=== PATIENT | male | born 1935 | race Caucasian/White ===

== ENCOUNTER 2023-05-25 14:03 | Emergency (ER) | payer MEDICARE, SELFPAY ==
[2023-05-25 14:06] VITALS: BP 107/59
--- NOTE | 2023-05-25 16:07 | ED.GENMED ---
History of Present Illness
General
Chief Complaint: Bowel Problem
Source: patient
Exam Limitations: none
Time Seen by Provider: 05/25/23 15:11
Travel History
Have you had any contact with someone who has COVID-19?: No
Do you have any symptoms of coronavirus? Fever > 100 degrees, chills, cough, shortness of breath, sore throat, loss of taste or smell, muscle aches, or headache?: No
History of Present Illness
History of Present Illness:
87-year-old male visiting his daughter presents with constipation and no bowel movement for 4 days. He typically does not deal with this issue. He denies abdominal pain nausea vomiting. He tried senna, he tried magnesium citrate without relief.
He states he has the urge to have a bowel movement but nothing comes out. No abdominal pain. No fever. He is on Eliquis for history of atrial fibrillation. He denies any bloody stools or vomit. No other complaints at this time
Phy Exam
Physical Exam
Physical Exam:
General: Well-appearing male no acute respiratory distress
HEENT: Normocephalic atraumatic
Heart: Regular rate and rhythm no murmur
Lungs: Clear to auscultation bilaterally no wheezing
Abdomen is soft nontender nondistended no guarding rebound normal bowel sound
Rectal exam: There is rectal impaction of stool. A large amount of stool was manually disimpacted. The stool was dark in color this was tested for blood which was negative.
Extremities: No cyanosis
Course
Orders/Labs/Results
Orders:
Orders
05/25/23 15:29
Enema- Treatment ONCE
Type: Milk of Molasses
Vital Signs
Initial and Last Documented VS:
Initial Vital Signs
Temp Pulse Resp BP Pulse Ox
97.6 F 66 18 107/59 98
05/25/23 14:06 05/25/23 14:06 05/25/23 14:06 05/25/23 14:06 05/25/23 14:06
Last Documented Vital Signs
Temp Pulse Resp BP Pulse Ox
97.6 F 66 18 107/59 98
05/25/23 14:06 05/25/23 14:06 05/25/23 14:06 05/25/23 14:06 05/25/23 14:06
MDM/Problems Addressed
Differential Diagnosis Includes:
Constipation. Abdomen benign nontender do not suspect bowel obstruction. No fever. Large amount of stool was manually disimpacted. Enema ordered.
*Critical Care Note
Total Time (30-74mins, 75-104mins- exclusive of procedures): Not Applicable
Update Note
Update Note:
Patient feeling much better after large amount of stool was manually disimpacted and receiving an enema. Abdomen is benign. Recommended continued stool softeners at home. Stable for discharge
ED Attending Note
-
Portions of this chart may have been created with voice recognition software.� Occasional wrong word or��sound alike� substitutions may have occurred due to the inherent limitations of voice recognition software.
Discharge Plan
Departure
Patient Disposition: Home (Routine Discharge)
Date of Disposition: 05/25/23
Time of Disposition: 16:53
Patient with high blood pressure during this ER visit?: No
Discharge Problem:
Constipation
Instructions: Constipation, Adult (DC)
Activity Restrictions/Additional Instructions:
Continue drinking plenty liquids. Use stool softeners daily. Return for worsening symptoms otherwise follow-up with your family doctor
Interventions
Interventions:
*Risk Screen - Suicide Last Done: 05/25/23 14:06
*General Assessment Last Done: 05/25/23 14:06
*Neglect/Abuse Screening Last Done: 05/25/23 14:06
*ED COVID-19 Vaccine History Last Done: 05/25/23 14:06
YZ-Gdfmep-Orcksqxofz Assessment Last Done: 05/25/23 15:33
[2023-05-25 17:16] VITALS: BP 112/67
== END 2023-05-25 17:24 | disposition home or self-care (01) ==
LOC: EMR 14:03
PROVIDERS: EMERGENCY PHYSICIAN Emergency Medicine
DX: K59.00 Constipation, unspecified (principal)
CPT/HCPCS: 99282

== ENCOUNTER 2023-05-31 23:57 | Inpatient (IN) | payer MEDICARE, SELFPAY ==
[2023-05-31] VITALS (7 sets, daily range): BP systolic 102–136; BP diastolic 57–72; BMI 25.2
[2023-05-31 15:26] LABS: % Basophils 0.2 % (0-2); % Eosinophils 0.3 % (0-6); % Immature Granulocytes 0.4 % (0-0.5); % Lymphocytes 4.9 % (20.5-51.1); % Monocytes 6.9 % (1.7-9.3); % Neutrophils 87.3 % (42.2-75.2); Absolute Immature Granulocytes 0.1 10^3/uL (0-0.05); Absolute Lymphocytes 0.6 10^3/uL (1.2-3.4); Absolute Monocytes 0.8 10^3/uL (0.1-0.6); Absolute Neutrophils 10.4 10^3/uL (1.4-6.5); Hematocrit 28.3 % (39.0-52.0); Hemoglobin 9.4 g/dL (13.0-18.0); Mean Corp Hgb Conc. 33.2 g/dL (33.0-37.0); Mean Corpuscular Hgb 30.5 pg (27.0-31.0); Mean Corpuscular Volume 91.9 fL (80.0-94.0); Mean Platelet Volume 9.7 fL (7.4-10.4); Nucleated Red Blood Cells % 0 % (-); Platelet Count 151 10^3/uL (130-400); Red Blood Cell Count 3.08 10^6/uL (4.70-6.10); Red Cell Dist. Width 15.8 % (11.5-14.5); White Blood Cell Count 11.9 10^3/uL (4.8-10.8)
[2023-05-31 15:42] LABS: ALT (SGPT) 14 U/L (0-50); AST (SGOT) 17 U/L (17-59); Albumin 3.1 g/dl (3.5-5.0); Alkaline Phosphatase 74 U/L (38-126); Blood Urea Nitrogen 40 mg/dl (9-20); Calcium 8.5 mg/dl (8.4-10.2); Carbon Dioxide 21 mmol/L (22-30); Chloride 105 mmol/L (98-107); Glucose 100 mg/dl (70-99); Lipase 24 U/L (23-300); Potassium 4.2 mmol/L (3.5-5.1); Sodium 133 mmol/L (135-145); Total Protein 5.6 g/dl (6.3-8.2); eGFR > 60.00
--- NOTE | 2023-05-31 19:09 | ED.GENMED ---
History of Present Illness
General
Chief Complaint: Bowel Problem
Source: patient
Exam Limitations: none
Time Seen by Provider: 05/31/23 18:39
Nursing documentation reviewed up to this point in time: agreed with
Travel History
Have you had any contact with someone who has COVID-19?: No
Do you have any symptoms of coronavirus? Fever > 100 degrees, chills, cough, shortness of breath, sore throat, loss of taste or smell, muscle aches, or headache?: No
History of Present Illness
History of Present Illness:
87 y/o M afib on eliquis, chf on prn lasix, htn, hld, urinary retention self caths
TAVR
partial gastrectomy from perf ulcer years ago
here with constipation
was here on 05/24 for the same
is in town from [place] visiting his daughter
has had ongoin constipation issues and takes iron. is pretty sedentary
when here he was disimpacted and then had large BM after enema and felt better
did not have imaging
went home an daughter has been trying to encourage fluids, movement, senna tea, colace
but pt stopped having BM again ,alst was 5 day ago but now he is nauseated and doesn't want to eat today
had limited food yesterday and nthing today
has not had black stool
no h/o divertic
is not having much abd pain but does feel rectal pressure.
Past History
Past History
ED Past Medical History: Arrthythmia (afib on eliquis), CAD, Cancer (kidney), CHF, GERD, HTN, Hypercholesterolemia and Other (PUD)
ED Past Surgical History: Cardiac and Other (partial gastrectomy, kidney tumor ); Negative Bowel resection
Social History
Tobacco: Non-smoker
Alcohol: None
Drug: None
Personal: Single
Living: with family
Review of Systems
Review of Systems
Allergies reviewed?: Yes
All Other Systems: Not applicable
Phy Exam
Physical Exam
Physical Exam:
GENERAL: Alert , in no apparent distress
EYE: pupils equal and reactive
NECK: Supple
ENT: o/p clr, mmm.
CARDIAC: Regular rate and rhythm .
LUNGS: Clear breath sounds bilaterally, no acute respiratory distress, no wheezes/rales/rhonchi
ABDOMEN: Soft, large inguinal hernia, no skin changes but slightly firm, can partially reduce; otherwise abdomen nontender;
fecal impaction
brown stool mixed with small amount of blood when disimpacted, heme pos.
NEUROLOGICAL: Alert and oriented, no focal neuro deficits
SKIN: Warm and dry, skin intact.
MUSCULOSKELETAL: No edema, well perfused. neg jay's sign
PSYCH: Normal and appropriate interaction.
Course
Orders/Labs/Results
Orders:
Orders
05/31/23 15:18
Complete Blood Count/With Diff Urgent
Comprehensive Metabolic Panel Urgent
Ferritin Urgent
Comment: ADD ON
Folate Urgent
Comment: ADD ON
Iron Urgent
Comment: ADD ON
Lipase Urgent
Total Iron Binding Urgent
Comment: ADD ON
Vitamin B12 Urgent
Comment: ADD ON
05/31/23 19:07
0.9% Sodium Chloride 500 ml [Nss] 500 ml IV BOLUS
Pantoprazole [Protonix IV] 40 mg IV NOW STA
05/31/23 19:37
CT Abd/Pel (IV only)-DH only Urgent
Comment:
Reason For Exam: constipation, nausea, lack of appetite
05/31/23 19:55
Vital Signs- Treatment ONCE
Frequency: Once
05/31/23 21:23
Urinalysis Reflex To Culture Urgent
Date Specimen was Collected: 05/31/23
Time Specimen was Collected: 20:12
Urine Microscopic Reflex Cult Urgent
Urine Culture Urgent
CHINO Source: U
Specimen Description:
Date Specimen was Collected: 05/31/23
Time Specimen was Collected: 20:12
05/31/23 22:25
Acetaminophen [Tylenol] 1,000 mg .ROUTE .STK-MED ONE
05/31/23 22:29
Ampicillin/Sulbactam 3 G [Unasyn] 3 gm 0.9% Sodium Chloride 100 ml [Nss] 100 ml IV NOW
05/31/23 22:45
Acetaminophen [Tylenol] 1,000 mg PO NOW STA
05/31/23 23:27
Add On- LAB Urgent
Tests Added?: iron ferritin, tibc, folate b12
05/31/23 23:28
SURGICAL CONSULT Routine
Consulting Provider: Josh Munoz
Was physician already notified: Yes
Reason for consult: lg left inguinal hernia containing bowel
05/31/23 23:35
Consult Notification Routine
Specialty to Notify: Gastroenterology
GASTROINTESTINAL CONSULT Routine
Consulting Provider: William Lyn
Was physician already notified: No
Reason for consult: consitipation poss colitis, ing hernia with bowel
05/31/23 23:36
Admit/Transfer Patient As Directed
Co-Sign Provider:
Level of Care: Inpatient admission
Assign to:: Medical/Surgical
Physician / Group: arsalan austin
Diagnosis: lg left inguinal hernia containg bowel, poss uti, constipation, anemia
Reason for Hospitalization: lg left inguinal hernia containg bowel, poss uti, constipation, anemia
Expected length of stay greater than two midnights?: Yes
ELOS- Estimated Length of Stay in days: 4
I certify the patient meets the requirements for IP care: Yes
Code Status As Directed
Resuscitation Status: Do not resuscitate
Reached after discussion with pt or family/Healthcare POA: Yes
Based on pt advanced directive or healthcare POA form: Yes
Decision communicated with: per pt
05/31/23 23:37
DNR Bracelet Application ONCE
06/01/23 00:20
0.9% Sodium Chloride 1000 ml [Nss] 1,000 ml IV 60 mls/hr
Acetaminophen [Tylenol] 1,000 mg PO Q6HPRN PRN
Albuterol [ProAIR HFA INHALER] 2 puff INH R QID PRN
06/01/23 00:20
VTE Contraindication Routine
VTE Mechanical Device Contraindication: Medical Contraindication
Pharmocologic Contraindication: Medical Contraindication
Comment: pt on eliquis
Activity As Directed
Activity Level: As Tolerated
Intake/ Output As Directed
Frequency: Per unit guidelines
Straight Cath As Directed
Frequency: q6h
Patient may straight cath themselves: Yes
Vital Signs As Directed
Frequency: Per unit guidelines
Weight As Directed
Frequency: Daily
Ot Eval And Treat Routine
Pt Eval And Treat Routine
Activity Level: As Tolerated
06/01/23 06:00
Complete Blood Count/With Diff IN AM
Comprehensive Metabolic Panel IN AM
06/01/23 08:00
Budesonide/Formoterol 160/4.5 [Symbicort 160/4.5 Mcg Inhaler] 2 puff INH R BID
Digoxin [Lanoxin] 125 mcg PO [id number]@0800
Empagliflozin [Jardiance] 10 mg PO DAILY
Ferrous Sulfate [Feosol] 325 mg PO DAILY
Finasteride [Proscar] 5 mg PO DAILY
Metoprolol Xl [Toprol Xl] 12.5 mg PO DAILY
Sacubitril 24/Valsartan 26 [Entresto 24 mg/26 mg] 1 tab PO DAILY
06/01/23 Dinner
NPO
Allow oral meds: Yes
Allow clear liquids: No
NPO with Ice Chips: No
06/01/23 18:00
Atorvastatin [Lipitor] 20 mg PO QPM
Montelukast Sodium [Singulair] 10 mg PO QPM
06/02/23 06:00
Complete Blood Count/With Diff IN AM
Comprehensive Metabolic Panel IN AM
06/03/23 06:00
Complete Blood Count/With Diff IN AM
Comprehensive Metabolic Panel IN AM
Abnormal Lab Results
05/31/23 05/31/23
15:18 21:23
WBC 11.9 H 10^3/uL
(4.8-10.8)
RBC 3.08 L 10^6/uL
(4.70-6.10)
Hgb 9.4 L g/dL
(13.0-18.0)
Hct 28.3 L %
(39.0-52.0)
RDW 15.8 H %
(11.5-14.5)
Abs Immat Gran (auto) 0.1 H 10^3/uL
(0-0.05)
Absolute Neuts (auto) 10.4 H 10^3/uL
(1.4-6.5)
Absolute Lymphs (auto) 0.6 L 10^3/uL
(1.2-3.4)
Absolute Monos (auto) 0.8 H 10^3/uL
(0.1-0.6)
Neutrophils % 87.3 H %
(42.2-75.2)
Lymphocytes % 4.9 L %
(20.5-51.1)
Sodium 133 L mmol/L
(135-145)
Carbon Dioxide 21 L mmol/L
(22-30)
BUN 40 H mg/dl
(9-20)
Glucose 100 H mg/dl
(70-99)
Iron 44 L ug/dl
(49-181)
TIBC 255 L ug/dl
(261-462)
% Saturation 17 L %
(20-50)
Total Protein 5.6 L g/dl
(6.3-8.2)
Albumin 3.1 L g/dl
(3.5-5.0)
Urine Ketones Trace A
(Negative)
Ur Occult Blood Reflex 4+ A
(Negative)
Urine Bilirubin 1+ A
(Negative)
Leukocyte Esterase Rfl 2+ A
(Negative)
Urine RBC 21-25 A /HPF
(0-2)
Urine WBC (Reflex) 70-80 A /HPF
(0-5)
Urine Glucose 2+ A
(Negative)
05/31/23 15:18
05/31/23 15:18
Vital Signs
Initial and Last Documented VS:
Initial Vital Signs
Temp Pulse Resp BP Pulse Ox
99 F 80 18 102/57 96
05/31/23 15:08 05/31/23 15:08 05/31/23 15:08 05/31/23 15:08 05/31/23 15:08
Last Documented Vital Signs
Temp Pulse Resp BP Pulse Ox
99 F 81 20 136/64 98
05/31/23 15:08 05/31/23 23:00 05/31/23 23:00 05/31/23 23:00 05/31/23 23:00
MDM/Problems Addressed
Differential Diagnosis Includes:
fecal impaction, obstruction, ileus, UTI
MDM/Problems Addressed:
87 y/o M with ho urinary retention chronically, self caths, anemia on iron, afib on eliquis
here with contpiation x 5 days despite senna and colace an trying to drink fluids
was more nauseated and had lack of appetite today which is why daughter brought him
he feels the urge to go but hasn't been able to
is still pssing some gas occasionally
no focal pain or tendenress
nontoxic
no abofminal tendneress
fecal impaction on exam
brown stool but some demetrio blood mixed likely due to trauma
the stool is heme pos because of the bleeding but i not black
did have a bm after disimpaction but daughter still concerned and requested CT.
CT findings shw large bowel loop in the hernia with some distenion and inflammatory chagnes
d/w ed attending
could be ischemic colitis
recommned fluids, abx and admit
i did reach out to gen dianna munoz to make him aware.
*Critical Care Note
Total Time (30-74mins, 75-104mins- exclusive of procedures): Not Applicable
ED Attending Note
-
Portions of this chart may have been created with voice recognition software.� Occasional wrong word or��sound alike� substitutions may have occurred due to the inherent limitations of voice recognition software.
Discharge Plan
Departure
Patient Disposition: Admit
Date of Disposition: 05/31/23
Time of Disposition: 22:09
Admit to: Med/Surg
Presentation/result/management discussed w/ accepting MD/DO: Hospitalist
Discharge Problem:
Constipation, Colitis, Rectal bleed, Hernia
Interventions
Interventions:
*Risk Screen - Suicide Last Done: 05/31/23 21:24
*General Assessment Last Done: 05/31/23 21:24
*Neglect/Abuse Screening Last Done: 05/31/23 21:24
ED- Fall Risk Assessment Last Done: 05/31/23 21:24
*ED COVID-19 Vaccine History Last Done: 05/31/23 21:24
BQ-Dkjikq-Ulzysnames Assessment Last Done: 05/31/23 19:30
--- NOTE | 2023-05-31 19:29 | EDRN ---
Report received, patient in the bathroom having a bowl movement, states he had some relief
[2023-05-31] MEDS: PROTONIX IV 40 MG IV (19:32)
[2023-05-31] MEDS: NSS 500 IV (19:33)
[2023-05-31 21:27] LABS: Urine Albumin Trace (Neg - Trace); Urine Bilirubin 1+ (Negative); Urine Character Slightly Cloudy (Clear); Urine Color Yellow; Urine Glucose 2+ (Negative); Urine Ketone Trace (Negative); Urine Leukocyte 2+ (Negative); Urine Nitrite Negative (Negative); Urine Occult Blood 4+ (Negative); Urine Specific Gravity 1.015 (<1.030); Urine Urobilinogen Negative (Neg - 1+)
[2023-05-31 21:38] LABS: Urine Red Blood Cell 21-25 /HPF (0-2); Urine Squamous Cell 0-2 /LPF (Few)
[2023-05-31 21:39] LABS: Urine White Cell 70-80 /HPF (0-5)
[2023-05-31] MEDS: TYLENOL 1000 MG PO (22:46)
[2023-05-31] MEDS: UNASYN IV (22:46)
--- NOTE | 2023-05-31 23:03 | HPS.HSE ---
Family Physician
-
Family Physician: NOT KNOW UNKNOWN - PT DOES
Chief Complaint
-
Constipation x 7 days
History of Present Illness
87-year-old male who is visiting his daughter from [place] who states he has been constipated for the past 7 days. He denies abdominal pain reports slight nausea with decreased appetite due to constipation. He denies fever, chills, chest pain,
palpitations, shortness of breath, cough, abdominal pain, urinary symptoms. He reports a chronic left inguinal hernia that is hard in nature but is nontender on palpation he is unsure if the size is larger than it normally is. He has chronic
urinary retention and self caths 3-4 times a day, paroxysmal A-fib, CHF, HTN, HLD, TAVR, COPD, chronic urinary retention/self caths, renal cancer with removal, gastric ulcer with repair, iron deficiency, cognitive impairment�mild, chronic left
inguinal hernia
Medical History
Past Medical History
Past Medical History: Reports Other
Additional Past Medical History:
cognitive impairment�mild ?
chronic left inguinal hernia
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
chronic urinary retention and self caths 3-4 times a day
paroxysmal A-fib
CHF/? Cardiomyopathy
HTN
HLD
TAVR
COPD
Former smoker
chronic urinary retention/self caths
renal cancer with cryoablation at [facility] possibly 2022
gastric ulcer with repair
iron deficiency
Past Surgical History: Reports Other
Additional Past Surgical History:
Cholecystectomy
Gastric ulcer with repair
TAVR
Renal cancer had cryoablation thinks right kidney at [facility] patient is unsure if last year or this year
Social History
Tobacco: Former Smoker (Quit 50 years ago)
Alcohol: None
Drug: None
Personal:
Living: Alone (In [facility] but currently visiting his daughter)
Employment: Retired
Family History
Family History: Unable to Obtain
Allergies / Home Medications
Allergies reflects when Allergies were last updated in [facility].
Home Medications with original date entered in [facility]
Allergy/Medication List:
Allergies
Allergy/AdvReac Type Severity Reaction Status Date / Time
No Known Allergies Allergy Unverified 05/25/23 15:40
Home Medications
acetaminophen 650 mg tablet,extended release 1,300 mg PO Q8H PRN mild pain 05/31/23
albuterol sulfate 90 mcg/actuation aerosol inhaler 2 puff inhalation R QID PRN sob/wheezing 05/31/23
apixaban 5 mg tablet (Eliquis) 5 mg PO BID 05/31/23
atorvastatin 20 mg tablet 20 mg PO QPM 05/31/23
budesonide 160 mcg-glycopyr 9 mcg-formot 4.8 mcg/actuation HFA inhaler (Breztri Aerosphere) 2 inh inhalation R BID 05/31/23
digoxin 125 mcg (0.125 mg) tablet 125 mcg PO MOTUWETHFR 05/31/23
empagliflozin 10 mg tablet (Jardiance) 10 mg PO DAILY 05/31/23
ferrous sulfate 250 mg (50 mg iron) tablet,extended release 250 mg PO DAILY 05/31/23
finasteride 5 mg tablet 5 mg PO DAILY 05/31/23
furosemide 40 mg tablet 20 mg PO DAILYPRN PRN per deputy sheriff chief 05/31/23
metoprolol succinate 25 mg tablet,extended release 24 hr 12.5 mg PO DAILY 05/31/23
montelukast 10 mg tablet 10 mg PO QPM 05/31/23
sacubitril 24 mg-valsartan 26 mg tablet (Entresto) 1 tab PO DAILY 05/31/23
sennosides 8.6 mg tablet (senna) 34.4 mg PO QPM 05/31/23
Review of Systems
-
History Source: Patient
A 12 point ROS was completed and negative except as noted: Yes
Constitutional: Denies Fever
EENT: Denies Tearing, Sore Throat or Runny Nose
Respiratory: Denies Cough or Trouble Breathing
Cardiac: Denies Chest Pain, Diaphoresis or Syncope
Abdomen/GI: Reports Nausea and Constipated (7 days); Denies Abdominal Pain, Vomiting, Diarrhea, Bloody Stools or Black Stools
: Reports Other (Chronic urinary retention patient self caths 3-4 times a day)
Musculoskeletal: Denies Joint Pain, Joint Swelling or Edema
Skin: Denies Itching or Rash
Neurological: Denies Dizzy, Headache or Weakness
Endocrine: Reports No Symptoms
Hematologic/Lymphatic: Reports No Symptoms
Psych: Reports Calm
Physical Exam
Vital Signs
Vital Signs
Temp Pulse Resp BP Pulse Ox
99 F 76 21 113/59 96
05/31/23 15:08 05/31/23 20:00 05/31/23 20:00 05/31/23 20:00 05/31/23 15:08
Physical Exam
General: Comfortable and Conversant; No Pain, Fever or Chills
HEENT: NormoCephalic, Anicteric, Moist mucous membranes, PERRLA and No Ptosis
Respiratory: Clear; No Wheezes, Rales or Rhonchi
Cardiac: S1/S2 and Irregular Rhythm (afib ); No Murmur, Rub, Gallop or Peripheral Edema
Breast: Deferred by me
GI: Soft, Non Tender, Non Distended, Normal Bowel Sounds and No Hepatosplenomegaly
Rectal: Deferred by Provider
Genito-urinary: Other (large left hard palpable hernia overlying entire left groin, lower suprapubic to mons pubis , nontender non mobile )
Musculoskeletal: No Clubbing, No Cyanosis and No Edema
Skin: Warm and Dry; No Rash
Neuro: Awake, Alert, Oriented (To name, place, place of living but not past medical history years or events), Nonfocal/grossly intact and No Sensory Deficits; No Slurred Speech, Facial Droop or Tremors
Psych: Calm
Laboratory Results
-
05/31/23 15:18
05/31/23 15:18
Laboratory Results
Total Bilirubin 1.0 mg/dl (0.2-1.3) 05/31/23 15:18
AST 17 U/L (17-59) 05/31/23 15:18
ALT 14 U/L (0-50) 05/31/23 15:18
Alkaline Phosphatase 74 U/L (38-126) 05/31/23 15:18
Lipase 24 U/L (23-300) 05/31/23 15:18
Impression/Plan
-
Impression/plan:
Admit to [facility]
#Left inguinal hernia with contained bowel/Chronic left inguinal hernia
WBC 11.9, HR 76, 99 F, 113/59
-Consult surgery
-Hold Eliquis last dose this am 05/31/23
- NPO
-Iv Nss 60 hr x 1 liter
-Patient given IV Zosyn in ER we will hold further dose pending urine culture/ do not suspect colitis as indicated on Ct, pt with no abdominal pain
-Follow CBC, CMP
CT abdomen pelvis:
1. large indirect left inguinal hernia, containing a large loop of sigmoid colon.
2. Mild to moderate gaseous distention of the colon proximal to the hernia sac. There is also suggestion of mild to moderate wall thickening and enhancement
of the colon proximal to the hernia sac. This finding would suggest colitis, which could be ischemic colitis given the large hernia and the gaseous distention.
Infectious colitis would be a differential consideration.
No gross evidence for pneumatosis. No evidence of free intraperitoneal air.
Two cystic foci within the tail the pancreas
#Acute constipation
-Patient disimpacted in ER with large bowel movement
-Consult GI
#Chronic urinary incontinence�self caths
Urine likely contaminant
-Follow urine culture
-Continue finasteride 5 mg daily
--Patient given IV Zosyn in ER we will hold further dose pending urine culture/ do not suspect colitis as indicated on Ct, pt with no abdominal pain
#Cognitive impairment�mild/undiagnosed
Oriented to name, place unsure of past medical history and dates relies on daughter's
#Normocytic anemia
Hx iron deficiency
Hgb 9.4, MCV 91.9 no prior lab
-Check iron panel, B12, folate
-Continue ferrous sulfate to 50 mg daily
#A-fib paroxysmal
-Continue digoxin 125 mcg Wednesday
-Continue metoprolol succinate 12.5 mg daily
#Chronic CHF unclear type/? Cardiomyopathy
Patient believes he sees a deputy sheriff chief at [facility] [place] in [place]
-Continue Entresto daily, Jardiance
#TAVR
#HTN�benign
Continue metoprolol succinate 12.5 mg daily
#HLD
-Continue atorvastatin 20 mg every afternoon
#COPD�no acute exacerbation
#Former smoker states quit 50 years ago
#Renal cancer with patient believes cryoablation at [facility] unsure if 2022 or 2023
#Hx gastric ulcer with repair
#Chronic ambulatory dysfunction uses rollator at baseline
Consult PT/OT
DVT prophylaxis
Hold current Eliquis until surgical eval
DNR per patient
--- NOTE | 2023-05-31 23:34 | W.PN.UPDATE ---
Update Note
Progress Note Update
This note serves as an addendum to the H&P by head animal keeper Ivon Daly on 06/01/23
HPI
87 pretty much sedentary M visiting [place] t daughter , suspected cognitive disorder, Prx AF on Eliquis, partial gastectomy for perforated , on Fe supplement , known Lt ngulanal hernia whowas seen at ER on 05/24 for HX ongoing constipation and
disimpated . Cuurently no BM for 1 week. Associated nauseated but no vomiting. No fever . Nochills.
No abdominal pain and non tender abdomen. NO black stool
PMHx
Prx AF on Eliquis
CAD
Cancer (kidney)
CHF
GERD
HTN
Hypercholesterolemia
PUD
PSHx
Partial gastrectomy
Kdney tumor
Negative Bowel resection
SHx
Non-smoker
Alcohol: None
Drug: None
lives with daughter
Reviewed VS T 99 HR 70s BP 102/57- 113/60
PE
Gen: NAD, not toxic
HEENT: anicteric, no pallor,nl OM
Neck: supple
Lungs: CTA
Cor: RRR S1 S2
Abdomen: Soft, non tenderness, large Lt firm non tender inguinl hernia
SECURITY SYSTEMS SPECIALIST: NFND
MS: no edema
Psych: appropriate
Data
WCC 11.9
Hgb 9.4
Na 133
CO2 21
BUN 40
nl Cr nl eGFR
Abn UA with significant pyuria
CT AP:
- large indirect left inguinal hernia, containing a large loop of sigmoid colon.
- Mild to moderate gaseous distention of the colon proximal to the hernia sac.
- There is also suggestion of mild to moderate wall thickening and enhancement of the colon proximal to the hernia sac.
- This finding would suggest colitis, which could be ischemic colitis given the large hernia and the gaseous distention. - - Infectious colitis would be a differential consideration.
- No gross evidence for pneumatosis. No evidence of free intraperitoneal air.
- Two cystic foci within the tail the pancreas. 87-year-old patient, no further imaging follow-up is recommended.
No prior admission to
ASSESSMENT & PLAN
Irreducible chr Lt non tender inguinal hernia
Constipation
- NPO and IVF
- Held Eliquis
- GS consult
CT suggestive of Colitis - ischemic , infective
- No gross evidence for pneumatosis. No evidence of free intraperitoneal air.
- onne dose of Zosyn at ER - will hold till further eval by GI
- GI consult
Abn UA with significant pyuria
Self cath for chr UR
- await UCx
- Held further ABx for now
Known conditions
Prx AF ; Held Eliquis
CAD
Cancer (kidney)
CHF
GERD
HTN
Hypercholesterolemia
PUD
DVT Px: SCD
Code: Full code
IP MS
[2023-06-01 00:24] LABS: Iron 44 ug/dl (49-181)
[2023-06-01] MEDS: NSS 1000 IV (00:24)
[2023-06-01 00:34] LABS: Percent Saturation 17 % (20-50); Total Iron Binding Capacity 255 ug/dl (261-462)
[2023-06-01 03:17] VITALS: BMI 25.2
[2023-06-01 05:27] LABS: Folate 8.9 ng/ml (2.76-20); Vitamin B12 420 pg/ml (239-931)
[2023-06-01 06:49] LABS: % Basophils 0.1 % (0-2); % Eosinophils 0.8 % (0-6); % Immature Granulocytes 0.3 % (0-0.5); % Monocytes 6.7 % (1.7-9.3); % Neutrophils 85.1 % (42.2-75.2); Absolute Eosinophils 0.1 10^3/uL (0-0.7); Absolute Lymphocytes 0.7 10^3/uL (1.2-3.4); Absolute Monocytes 0.6 10^3/uL (0.1-0.6); Absolute Neutrophils 7.9 10^3/uL (1.4-6.5); Hematocrit 28.5 % (39.0-52.0); Hemoglobin 9.4 g/dL (13.0-18.0); Mean Corpuscular Hgb 30.7 pg (27.0-31.0); Mean Corpuscular Volume 93.1 fL (80.0-94.0); Mean Platelet Volume 9.9 fL (7.4-10.4); Nucleated Red Blood Cells % 0 % (-); Platelet Count 133 10^3/uL (130-400); Red Blood Cell Count 3.06 10^6/uL (4.70-6.10); Red Cell Dist. Width 15.9 % (11.5-14.5); White Blood Cell Count 9.2 10^3/uL (4.8-10.8)
[2023-06-01 07:04] LABS: ALT (SGPT) 12 U/L (0-50); AST (SGOT) 15 U/L (17-59); Albumin 2.8 g/dl (3.5-5.0); Alkaline Phosphatase 66 U/L (38-126); Blood Urea Nitrogen 38 mg/dl (9-20); Calcium 8.2 mg/dl (8.4-10.2); Carbon Dioxide 19 mmol/L (22-30); Chloride 108 mmol/L (98-107); Estimated Creatinine Clearance 50 ml/min; Glucose 70 mg/dl (70-99); Potassium 3.9 mmol/L (3.5-5.1); Sodium 135 mmol/L (135-145); Total Bilirubin 0.8 mg/dl (0.2-1.3); Total Protein 5.2 g/dl (6.3-8.2); eGFR > 60.00
--- NOTE | 2023-06-01 07:40 | W.PN.HOSP.TC ---
Addendum entered and electronically signed by Catie Young MD 06/01/23 15:00:
mild to moderate , but acceptable risk for Hernia repair under LMA
Original Note:
Today's Communication/Plan
-
Enema
Surgery eval
Assessment / Plan
Assessment / Plan
87 y/o male with Constipation. He had a very complicated cholecystectomy in April 2022 therefore could not inguinal hernia repair done so far.
CVS: S1-S2 normal
Chest: CTA B/L
Abdomen: Soft, Large LIH with trapped Bowel
Extremities: No edema, normal pulses
# Irreducible chr Lt non tender inguinal hernia
Constipation likely lead to this
Discussed with Dr.Lambour- NAILS for MOM enema
NPO and IVF
Hold Eliquis for now
GS consult and GI consult awaited.
# UTI per labs- Start AB
chronic urinary retention/self caths
Await Cx
# CHF-type unknown
Last echo WAS 50% EF per daughter
Seen at [facility] in [place]
Continue atorvastatin, metoprolol, Entresto
Hold Jardiance as n.p.o.
Hold Lasix as n.p.o.
Hold Eliquis as above
# Afib- Hold Eliquis
Continue metoprolol, Dig

# Anemia of chronic disease
GI eval as OP Discussed with daughter
# HTN-continue metoprolol, Entresto
# Hyperlipidemia-atorvastatin
# H/O PUD with surgery/GERD-Had 'Nerve Removal'
So don't need PPI per daughter
# H/O Renal cancer Right side with cryoablation at [facility] possibly 2022
H/O RCC Left kidney in 2011 had partial Nephrectomy Left side
# H/O TAVR
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
MRI Pancreas as OP
Discussed with daughter
# Complicated Cholecystectomy in april of 2022
# Cognitive impairment
# Chronic ambulatory dysfunction uses walker
# Hypoalbuminemia
# Likely has COPD? -on respiratory, albuterol inhaler
# Prostate disease-continue finasteride
# Ex Smoker
# DNR status
Discussed with nursing
Discussed with Dr. Costa
Discussed with GI who is awaiting surgical consultation
D/W Daughter and updated.
Anticipated Discharge: 24 - 48 hours
Subjective/Interval History
-
Date of Service: June 01, 2023
Objective Data
-
Labs:
Laboratory Results
06/01/23
05:58
WBC 9.2
Hgb 9.4 L
Hct 28.5 L
Plt Count 133
Sodium 135
Potassium 3.9
Chloride 108 H
Carbon Dioxide 19 L
BUN 38 H
Creatinine 1.0
Glucose 70
Calcium 8.2 L
Total Bilirubin 0.8
AST 15 L
ALT 12
Alkaline Phosphatase 66
Vital Signs:
Vital Signs
Temp Pulse Resp BP Pulse Ox
98.1 F 73 17 136/64 96
06/01/23 04:29 06/01/23 03:45 06/01/23 03:45 05/31/23 23:00 06/01/23 03:42
I&O
05/31/23 06/01/23 06/02/23
06:59 06:59 06:59
Intake Total 580 / 580
Output Total 500 / 500
Balance 80 / 80
[2023-06-01] MEDS: SYMBICORT 160/4.5 MCG INHALER 2 PUFF INH ×2 (08:08→19:50)
[2023-06-01] MEDS: SPIRIVA RESPIMAT 2.5 MCG 2 PUFF INH (08:08)
[2023-06-01 08:28] LABS: Iron 45 ug/dl (49-181)
[2023-06-01 08:29] VITALS: BP 133/55
[2023-06-01] MEDS: JARDIANCE PO (08:33)
[2023-06-01 08:37] LABS: Percent Saturation 19 % (20-50); Total Iron Binding Capacity 235 ug/dl (261-462)
[2023-06-01 08:40] LABS: Glucose - Point of Care 71 mg/dl (70-99)
[2023-06-01] MEDS: ENTRESTO 24 MG/26 MG 1 TAB PO (09:11)
[2023-06-01] MEDS: TOPROL XL 12.5 MG PO (09:11)
[2023-06-01] MEDS: FEOSOL 325 MG PO (09:11)
[2023-06-01] MEDS: PROSCAR 5 MG PO (09:11)
[2023-06-01] MEDS: LANOXIN 125 MCG PO (09:22)
[2023-06-01] MEDS: NSS (PRESERVATIVE FREE) 10 ML IV (10:20)
[2023-06-01] MEDS: ROCEPHIN 1000 MG IV (10:20)
[2023-06-01] MEDS: PROTONIX IV 40 MG IV (10:20)
[2023-06-01] MEDS: STERILE WATER FOR INJECTION 10 ML IV (10:21)
--- NOTE | 2023-06-01 10:27 | CON.GS ---
Addendum entered and electronically signed by Kory Costa MD 06/01/23 12:03:
Patient is an 87 yo M with a PMH of HTN, HLD, s/p TAVR, A-fib (on Eliquis, LD 05/30 PM), CHF, COPD (no home O2), RIGHT RCC s/p cryoablation approximately 12 years ago, s/p laparoscopic cholecystectomy, s/p exploratory laparotomy for a gastric ulcer
years ago, and undescended testicle as a child s/p orchiectomy. Mr. Sykes states that he has had a known large LEFT inguinal hernia for years now. He was previously evaluated by a surgeon at the time of his cholecystectomy in 2022 and was
instructed to follow a watchful waiting approach. He has had no significant pain or discomfort associated with his hernia. He does note mild twinges of discomfort infrequently. No nausea or vomiting. He does note issues with constipation and
takes senna on an as-needed basis. His most recent bowel movement and flatus was here in the ED. He has had multiple loose nonbloody bowel movements. No fevers or chills. No abdominal pain or discomfort. He currently resides in [place] and is
visiting his daughter who has brought him to the ER on multiple occasions.
Gen: NAD
Abd: soft, NT/ND, non-peritoneal, midline incision well healed, large LEFT inguinoscrotal hernia, soft, NT, partially reducible, no significant pain with reduction
Labs and imaging were reviewed.
Patient is an 87 yo M p/w large LEFT indirect inguinal scrotal hernia containing large bowel. No clinical evidence of obstruction, unlikely to have strangulation or ischemia given radiographic findings, normalization of white count, and exam.
The natural history and pathophysiology of inguinal hernias was discussed. Options for management including continued watchful waiting and medical management approach versus surgical repair were considered and discussed. The pros and cons of both
approaches was discussed. Specifically, we discussed persistent symptoms of constipation, development of complete obstruction or strangulation symptoms, and increased size with time versus surgical risks. Given the size and symptomatic nature,
recommend operative repair. As described above, low risk for strangulation or ischemia. Repair can be performed on a semielective basis. Due to logistical issues with living in [place] and cardiac risk profiling/optimization, will plan for
repair during this hospitalization.
Plan for an open LEFT inguinal scrotal hernia repair with mesh. The procedure itself, as well as the risks, benefits, and alternatives was discussed. Specifically, we discussed the risks of bleeding, infection, injury to surrounding structures
(bowel, nerves, blood supply to the testicle, and vas deferens), chronic groin discomfort, urinary retention, and recurrence. Typical postprocedure recovery including pain management, time spent in the hospital, potential need for discharge to
rehab, and the need for 4 weeks after lifting was discussed. All questions answered. Daughters updated by phone.
-- Tentative plan for open LIH repair with mesh tomorrow 4/ after Eliquis washout
-- Clears, NPO PM
-- Hold Eliquis
-- Miralax daily, OK for enema if needed
-- Cardiology consult for risk stratification, would attempt MAC though likely general with LMA given size of hernia
--
Original Note:
Medical History
-
Chief Complaint: Constipation
History of Present Illness:
87 yr old male with history of chronic left inguinal hernia, cholecystectomy, renal cancer s/p cryoablation, remote hx of gastric ulcer with open repair, afib, CHF, TAVR, COPD, who presents with c/o constipation x7 days. He resides in [facility], and is
visiting his daughter. He denies abdominal pain, nausea/vomiting, fever, chills, chest pain, SOB, palpitations. He has had 3 bowel movements today while in the hospital. He has one undescended testicle, pt is unsure of what side. There has been no
recent illness or sick contacts.
Of note, he was seen at ED 7 days ago for constipation x4 days, with a large bowel movement following manual disimpaction and enema.
Past Medical History
Past Medical History: Cancer (renal), CHF, COPD, Valvular Disease and Other (A-fib, chronic urinary retention, ambulatory dysfunction)
Past Surgical History: Cardiac, Cholecystectomy and Other (gastric ulcer repair, )
Social History
Tobacco: Former Smoker
Alcohol: None
Drug: None
Personal:
Living: Alone
Employment: Retired
Family History
Family History: Reviewed & Noncontributory
Allergies / Home Medications
Allergy/AdvReac Type Severity Reaction Status Date / Time
No Known Allergies Allergy Unverified 05/25/23 15:40
�Medication �Instructions �Recorded �Confirmed �Type
acetaminophen 650 mg 1,300 mg PO Q8H PRN mild pain 05/31/23 05/31/23 History
tablet,extended release
albuterol sulfate 90 mcg/actuation 2 puff inhalation R QID PRN 05/31/23 05/31/23 History
aerosol inhaler sob/wheezing
apixaban 5 mg tablet (Eliquis) 5 mg PO BID Blood Clot 05/31/23 05/31/23 History
Prevention/Tx
atorvastatin 20 mg tablet 20 mg PO QPM High Cholesterol 05/31/23 05/31/23 History
budesonide 160 mcg-glycopyr 9 2 inh inhalation R BID 05/31/23 05/31/23 History
mcg-formot 4.8 mcg/actuation HFA Lung/Breathing Issues
inhaler (Breztri Aerosphere)
digoxin 125 mcg (0.125 mg) tablet 125 mcg PO MOTUWETHFR Heart Failure 05/31/23 05/31/23 History
empagliflozin 10 mg tablet 10 mg PO DAILY Heart Failure 05/31/23 05/31/23 History
(Jardiance)
ferrous sulfate 250 mg (50 mg 250 mg PO DAILY Supplement 05/31/23 05/31/23 History
iron) tablet,extended release
finasteride 5 mg tablet 5 mg PO DAILY prostate issues 05/31/23 05/31/23 History
furosemide 40 mg tablet 20 mg PO DAILYPRN PRN per 05/31/23 05/31/23 History
cotton stomper
metoprolol succinate 25 mg 12.5 mg PO DAILY Heart Failure 05/31/23 05/31/23 History
tablet,extended release 24 hr
montelukast 10 mg tablet 10 mg PO QPM asthma 05/31/23 05/31/23 History
sacubitril 24 mg-valsartan 26 mg 1 tab PO DAILY Heart Failure 05/31/23 05/31/23 History
tablet (Entresto)
sennosides 8.6 mg tablet (senna) 34.4 mg PO QPM Constipation 05/31/23 05/31/23 History
Review of Systems
-
History Source: Patient and Family
Constitutional: Fever (negative), Fatigue (negative) and Chills (negative)
Respiratory: No Symptoms and Trouble Breathing (negative)
Cardiac: No Symptoms, Chest Pain (negative), Palpitations (negative) and Other (occasional dizziness)
Abdomen/GI: Abdominal Pain (negative), Nausea (negative), Vomiting (negative) and Constipated
: Difficulty Voiding
A 10 point review of systems was completed, and was negative except as per HPI.
Physical Exam
Vital Signs
Temp Pulse Resp BP Pulse Ox
98 F 93 16 133/55 95
06/01/23 08:29 06/01/23 09:22 06/01/23 08:29 06/01/23 08:29 06/01/23 08:30
05/31/23 06/01/23 06/02/23
06:59 06:59 06:59
Actual Weight 73.028 kg
Body Mass Index (BMI) 25.2
Lab Results
06/01/23 05:58
06/01/23 05:58
WBC 9.2 10^3/uL (4.8-10.8) 06/01/23 05:58
Hgb 9.4 g/dL (13.0-18.0) L 06/01/23 05:58
Hct 28.5 % (39.0-52.0) L 06/01/23 05:58
Plt Count 133 10^3/uL (130-400) 06/01/23 05:58
Abs Immat Gran (auto) 0.0 10^3/uL (0-0.05) 06/01/23 05:58
Neutrophils % 85.1 % (42.2-75.2) H 06/01/23 05:58
Physical Exam
General: Well Developed, Well Nourished and No Apparent Distress
HEENT: Normocephalic, Anicteric and Moist Mucous Membranes
Respiratory: Non Labored Respirations and Accessory Resp Muscle Use (negative)
GI: Soft, Non Tender, Non Distended, Tender and Other (Large left inguinal hernia, projecting into left scrotum, firm, non-erythematous, non-tender, not easily reducible)
Neuro: Awake, Alert and Oriented
Psych: Calm
Assessment / Plan
-
87 yr old male with recurrent constipation and large left irreducible inguinal hernia.
Plan:
- Left inguinal hernia was only partially reducible with significant effort.
- Admit patient for non-urgent open hernia repair
- Last Eliquis dose was last night. Hold Eliquis at least 48 hours pre-op
[2023-06-01 10:36] LABS: Digoxin 0.7 ng/ml (0.8-2.0)
[2023-06-01] MEDS: TYLENOL 1000 MG PO (10:50)
--- NOTE | 2023-06-01 10:57 | CON.GI ---
Addendum entered and electronically signed by William Lyn MD 06/01/23 17:11:
I saw and examined the patient.
The SAMPLER PICKUP or PA's note was reviewed and I agree with the note.
Comment: 87 yo M here with constipation found on CT to have large L inguinal loop with containing colon as below.
Surgery note reviewed plan OR tomorrow.
GI will sign off please call with ?s.
Original Note:
Consultation
-
Date/Time Consultation Requested: 05/31/23 2330
Date/Time Consultation Performed: 06/01/23 1100
Requesting Provider: STEPHANIA Moreno
Performing Provider: STEPHANIA Gutierrez, Indu Lyn MD
Reason for Consultation: abdominal pain
Medical History
Chief Complaint / HPI
Chief Complaint: constipation
History of Present Illness:
Pt is an 87yo with hx cognitive impairment, ambulatory dysfunction, PAF, CHF, DM, HTN, HLD, TAVR, COPD, chronic urinary retention, renal cancer with cryoablation at [facility], gastric ulcer with repair, iron deficiency is visiting from
[place] with family and noted with 7 days of constipation. Per patient will have stool 1-2 per day but last week no stools. He was seen in ER 05/24 with disimpaction and now returns with recurrent symptoms. On admission CT completed with large
left inguinal hernia containing loop of sigmoid colon and gaseous distention of colon with mild to moderate thickening of colon proximal to hernia suggesting colitis possible ischemic vs infectious.
Pt otherwise denies dysphagia, GERD, nausea, vomiting, abdominal pain, diarrhea or rectal bleeding. Last colonoscopy 6-7 years ago with polyps.
Past Medical History
Past Medical History: Arrhythmias (PAF), Cancer (renal CA with cryoablation at [facility]), CHF, Hypercholesterolemia, NIDDM and Other (cognitive impairment, ambulatory dysfunction, chronic urinary retention with straight cath, gastric ulcer,
iron deficiency, colon polyps)
Past Surgical History: Cardiac (TAVR) and Other (gastric ulcer repair)
Social History
Tobacco: Former Smoker
Alcohol: None
Drug: None
Personal:
Living: Alone (in [place] family close to patient other daughter in [place])
Employment: Retired
Family History
Family History: Other (no family hx colon CA or polyps)
Allergies / Home Medications
Allergy/AdvReac Type Severity Reaction Status Date / Time
No Known Allergies Allergy Unverified 05/25/23 15:40
�Medication �Instructions �Recorded
acetaminophen 650 mg 1,300 mg PO Q8H PRN mild pain 05/31/23
tablet,extended release
albuterol sulfate 90 mcg/actuation 2 puff inhalation R QID PRN 05/31/23
aerosol inhaler sob/wheezing
apixaban 5 mg tablet (Eliquis) 5 mg PO BID Blood Clot 05/31/23
Prevention/Tx
atorvastatin 20 mg tablet 20 mg PO QPM High Cholesterol 05/31/23
budesonide 160 mcg-glycopyr 9 2 inh inhalation R BID 05/31/23
mcg-formot 4.8 mcg/actuation HFA Lung/Breathing Issues
inhaler (Breztri Aerosphere)
digoxin 125 mcg (0.125 mg) tablet 125 mcg PO MOTUWETHFR Heart Failure 05/31/23
empagliflozin 10 mg tablet 10 mg PO DAILY Heart Failure 05/31/23
(Jardiance)
ferrous sulfate 250 mg (50 mg 250 mg PO DAILY Supplement 05/31/23
iron) tablet,extended release
finasteride 5 mg tablet 5 mg PO DAILY prostate issues 05/31/23
furosemide 40 mg tablet 20 mg PO DAILYPRN PRN per 05/31/23
bag turner
metoprolol succinate 25 mg 12.5 mg PO DAILY Heart Failure 05/31/23
tablet,extended release 24 hr
montelukast 10 mg tablet 10 mg PO QPM asthma 05/31/23
sacubitril 24 mg-valsartan 26 mg 1 tab PO DAILY Heart Failure 05/31/23
tablet (Entresto)
sennosides 8.6 mg tablet (senna) 34.4 mg PO QPM Constipation 05/31/23
Review of Systems
-
History Source: Patient and Family
Constitutional: Reports No Symptoms
EENT: Reports No Symptoms
Respiratory: Reports No Symptoms
Cardiac: Reports No Symptoms
Abdomen/GI: Reports Constipated
: Reports Other (chronic st cath no urinary symptoms )
Musculoskeletal: Reports No Symptoms
Skin: Reports No Symptoms
Neurological: Reports No Symptoms
Endocrine: Reports No Symptoms
Hematologic/Lymphatic: Reports No Symptoms
Vital Signs
Temp Pulse Resp BP Pulse Ox
98 F 93 16 133/55 95
06/01/23 08:29 06/01/23 09:22 06/01/23 08:29 06/01/23 08:29 06/01/23 08:30
Physical Exam
Exam
General: Well Developed and No Apparent Distress
HEENT: Normocephalic and Anicteric
Respiratory: Clear
Cardiac: Other (irregular )
GI: Soft, Non Tender, Non Distended and Other (large left inguinal hernia )
Musculoskeletal: No Clubbing and No Cyanosis
Skin: Warm and Dry
Neuro: Awake, Alert and AO x 3
Psych: Calm
Results
WBC 9.2 10^3/uL (4.8-10.8) 06/01/23 05:58
Hgb 9.4 g/dL (13.0-18.0) L 06/01/23 05:58
Hct 28.5 % (39.0-52.0) L 06/01/23 05:58
MCV 93.1 fL (80.0-94.0) 06/01/23 05:58
Plt Count 133 10^3/uL (130-400) 06/01/23 05:58
Absolute Neuts (auto) 7.9 10^3/uL (1.4-6.5) H 06/01/23 05:58
Sodium 135 mmol/L (135-145) 06/01/23 05:58
Potassium 3.9 mmol/L (3.5-5.1) 06/01/23 05:58
Chloride 108 mmol/L (98-107) H 06/01/23 05:58
Carbon Dioxide 19 mmol/L (22-30) L 06/01/23 05:58
BUN 38 mg/dl (9-20) H 06/01/23 05:58
Creatinine 1.0 mg/dL (0.7-1.3) 06/01/23 05:58
Calcium 8.2 mg/dl (8.4-10.2) L 06/01/23 05:58
Total Bilirubin 0.8 mg/dl (0.2-1.3) 06/01/23 05:58
AST 15 U/L (17-59) L 06/01/23 05:58
ALT 12 U/L (0-50) 06/01/23 05:58
Alkaline Phosphatase 66 U/L (38-126) 06/01/23 05:58
Lipase 24 U/L (23-300) 05/31/23 15:18
Diagnostic Image Results:
05/31/23 CT A/p IV only
There is a large indirect left inguinal hernia, containing a large loop of sigmoid colon.
Mild to moderate gaseous distention of the colon proximal to the hernia sac. There is also suggestion of mild to moderate wall thickening and enhancement of the colon proximal to the hernia sac. This finding would suggest colitis, which could be
ischemic colitis given the large hernia and the gaseous distention. Infectious colitis would be a differential consideration.
No gross evidence for pneumatosis. No evidence of free intraperitoneal air.
Two cystic foci within the tail the pancreas. 87-year-old patient, no further imaging follow-up is recommended.
Prior GI Procedures:
EGD: recalls as normal in past
Colonoscopy: 6-7 years with with hx polyps in [place]
Assessment / Plan
-
Pt is an 87yo with hx cognitive impairment, ambulatory dysfunction, PAF, CHF, DM, HTN, HLD, TAVR, COPD, chronic urinary retention, renal cancer with cryoablation at [facility], gastric ulcer with repair, iron deficiency is visiting from
[place] with family and noted with 7 days of constipation. Per patient will have stool 1-2 per day but last week no stools. He was seen in ER 05/24 with disimpaction and now returns with recurrent symptoms. On admission CT completed with large
left inguinal hernia containing loop of sigmoid colon and gaseous distention of colon with mild to moderate thickening of colon proximal to hernia suggesting colitis possible ischemic vs infectious. Last colonoscopy 6-7 years ago with polyps.
-constipation
-large left inguinal hernia
-CT with concern for colitis - ischemic vs other
-PAF on Eliquis
other medical problems:
-hx renal CA with prior cryoablation at [facility]
-gastric ulcer with prior repair
-MEME
-CHF
-DM
-HTN
-hyperlipidemia
-TAVR
-COPD
-chronic urinary retention
PLAN:
etiology of constipation related to obstructive process with hernia vs chronic constipation related vs other
per nursing staff and patient plan for surgical repair tomorrow
will review with surgery for plan and proceeding enema
wll need to monitor bowel and need for chronic constipation regiment
Eliquis hold
-
-
Thank you for consultation and allowing me to participate in the patient's care. Please call the infusion nurse GI physician during the after hours with any questions or concerns.
[2023-06-01 12:02] LABS: Glucose - Point of Care 80 mg/dl (70-99)
[2023-06-01 14:00] VITALS: BP 124/85; PULSE 76
--- NOTE | 2023-06-01 14:00 | PTCARENOTE ---
Pt AOx3, denies pain or nausea. Advanced to Clears, tolerating well. Straight cathed @ 1030 [address] Costa discussed POC w/ pt and pt's family over the phone. Plan for surgery tomorrow, NPO at midnight. Will hold enema, and give
Miralax per Dr Costa. Pt incontinent of small amount of loose brown stool in attends. PT/OT assisted pt OOB w/ RW, few steps in room. VSS. NS @ 60ml/hr. A fib on monitor HR 80-90's, tele removed, pt M/S, to transfer to 2S 2119.
[2023-06-01] MEDS: MIRALAX 17 GRAMS PO (14:28)
[2023-06-01 14:42] VITALS: BP 124/85; PULSE 85
[2023-06-01 14:52] VITALS: BP 125/69
--- NOTE | 2023-06-01 15:17 | PTCARENOTE ---
1425: Patient arrived to 2 south. Full head to toe assessment completed. IV fluids running per order. L groin with +2 edema. Hernia noted. Patient incontinent of liquid stool x2. Sacrum red and blanchable. Barrier ointment applied. Patient
instructed to turn and reposition every 2 hours. Patient verbalized understanding. Call sapp within reach and bed in lowest position. Bed alarm in place. Patients daughter at bedside.
[2023-06-01 15:37] LABS: Vitamin B12 536 pg/ml (239-931)
[2023-06-01 16:10] LABS: Troponin I 0.024 ng/ml
--- NOTE | 2023-06-01 17:11 | W.PN.UPDATE ---
Update Note
Progress Note Update
billing purposes only
[2023-06-01] MEDS: LIPITOR 20 MG PO (17:12)
[2023-06-01] MEDS: SINGULAIR 10 MG PO (17:12)
[2023-06-01 23:10] VITALS: BP 108/54
[2023-06-02 05:42] LABS: % Basophils 0.3 % (0-2); % Eosinophils 1.7 % (0-6); % Immature Granulocytes 0.3 % (0-0.5); % Lymphocytes 8.9 % (20.5-51.1); % Monocytes 6.9 % (1.7-9.3); % Neutrophils 81.9 % (42.2-75.2); Absolute Eosinophils 0.1 10^3/uL (0-0.7); Absolute Lymphocytes 0.6 10^3/uL (1.2-3.4); Absolute Monocytes 0.5 10^3/uL (0.1-0.6); Absolute Neutrophils 5.8 10^3/uL (1.4-6.5); Mean Corp Hgb Conc. 33.3 g/dL (33.0-37.0); Mean Corpuscular Hgb 30.7 pg (27.0-31.0); Mean Corpuscular Volume 92.2 fL (80.0-94.0); Mean Platelet Volume 9.9 fL (7.4-10.4); Nucleated Red Blood Cells % 0 % (-); Platelet Count 142 10^3/uL (130-400); Red Blood Cell Count 2.93 10^6/uL (4.70-6.10); Red Cell Dist. Width 15.8 % (11.5-14.5); White Blood Cell Count 7.1 10^3/uL (4.8-10.8)
[2023-06-02 06:00] VITALS: BMI 25.6
[2023-06-02 06:10] LABS: ALT (SGPT) 13 U/L (0-50); AST (SGOT) 16 U/L (17-59); Albumin 2.9 g/dl (3.5-5.0); Alkaline Phosphatase 69 U/L (38-126); Blood Urea Nitrogen 32 mg/dl (9-20); Calcium 8.5 mg/dl (8.4-10.2); Carbon Dioxide 21 mmol/L (22-30); Chloride 106 mmol/L (98-107); Estimated Creatinine Clearance 50 ml/min; Glucose 64 mg/dl (70-99); Potassium 4.1 mmol/L (3.5-5.1); Sodium 136 mmol/L (135-145); Total Bilirubin 0.7 mg/dl (0.2-1.3); Total Protein 5.3 g/dl (6.3-8.2); eGFR > 60.00
[2023-06-02 07:05] VITALS: BP 115/75
[2023-06-02] MEDS: MIRALAX PO (07:44)
[2023-06-02] MEDS: PROTONIX IV 40 MG IV (07:49)
[2023-06-02] MEDS: NSS (PRESERVATIVE FREE) 10 ML IV (07:49)
[2023-06-02] MEDS: PROSCAR 5 MG PO (07:49)
[2023-06-02] MEDS: FEOSOL 325 MG PO (07:49)
[2023-06-02] MEDS: LANOXIN 125 MCG PO (07:53)
[2023-06-02] MEDS: TOPROL XL 12.5 MG PO (07:54)
[2023-06-02] MEDS: ENTRESTO 24 MG/26 MG 1 TAB PO (07:54)
[2023-06-02] MEDS: SPIRIVA RESPIMAT 2.5 MCG 2 PUFF INH (08:14)
[2023-06-02] MEDS: SYMBICORT 160/4.5 MCG INHALER 2 PUFF INH ×2 (08:14→20:05)
--- NOTE | 2023-06-02 08:50 | W.PN.HOSP.TC ---
Today's Communication/Plan
-
OR today
Assessment / Plan
Assessment / Plan
Gen-AAOx3, NAD
HEENT-NC, AT, anicteric, clear oral mm
Neck-supple
CV-reg, no M, +S1/S2
Lungs-clear B/L
Abd-soft, NT, ND, large left inguinal hernia
Ext-no edema
Musculoskeletal-no cyanosis, clubbing
Skin-warm and dry
Neuro-grossly non-focal
Psych-calm, cooperative
Non-reducible chronic left inguinal hernia -n.p.o. for surgical repair this afternoon. Medically stable.
Chronic constipation -possibly exacerbated by hernia. Continue bowel regimen.
Asymptomatic pyuria -clinically doubt UTI. Hold further antibiotics. Self-catheterization at home, suspect he will always have pyuria. Patient also relates that he went to urgent care a month ago for evaluation of a cough. Apparently given
antibiotics for reported 'UTI' at that point in time although he again had no symptoms.
Chronic heart failure preserved EF -Last echo WAS 50% EF per daughter
Seen at [facility] in [place]
Continue atorvastatin, metoprolol, Entresto
Hold Jardiance as n.p.o.
Hold Lasix as n.p.o.
Atrial fibrillation -unknown type. Eliquis on hold for surgery today.
Continue metoprolol, Dig
Hyponatremia -present on admission. Resolved.
Anemia of chronic disease
GI eval as OP Discussed with daughter
Essential HTN -continue metoprolol, Entresto
Hyperlipidemia-atorvastatin
H/O PUD with surgery/GERD-Had 'Nerve Removal'
H/O Renal cancer Right side with cryoablation at [facility] possibly 2022
H/O RCC Left kidney in 2011 had partial Nephrectomy Left side
H/O TAVR
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
MRI Pancreas as OP if desired
Discussed with daughter
Complicated Cholecystectomy in april of 2022
Cognitive impairment
Chronic ambulatory dysfunction uses walker
Hypoalbuminemia
Likely has COPD? -on respiratory, albuterol inhaler
Prostate disease-continue finasteride
Ex Smoker
DNR
Anticipated Discharge: Within 24 hours
Subjective/Interval History
-
Date of Service: June 02, 2023
Patient seen and examined. No complaints.
Objective Data
-
Labs:
Laboratory Results
06/02/23
04:52
WBC 7.1
Hgb 9.0 L
Hct 27.0 L
Plt Count 142
Sodium 136
Potassium 4.1
Chloride 106
Carbon Dioxide 21 L
BUN 32 H
Creatinine 1.0
Glucose 64 L
Calcium 8.5
Total Bilirubin 0.7
AST 16 L
ALT 13
Alkaline Phosphatase 69
Vital Signs:
Vital Signs
Temp Pulse Resp BP Pulse Ox
97.6 F 73 18 135/70 99
06/02/23 07:05 06/02/23 07:54 06/02/23 07:05 06/02/23 07:54 06/02/23 07:05
I&O
06/01/23 06/02/23 06/03/23
06:59 06:59 06:59
Intake Total 580 / 580
Output Total 500 / 500 1200 / 1200 250 / 250
Balance 80 / 80 -1200 / -1200 -250 / -250
Review of Systems
-
History Source: Patient
All other systems: Reviewed and negative
--- NOTE | 2023-06-02 10:24 | CM ---
Reviewed the chart notes and spoke with the patient at the bedside. The patient resides in [place] in a first floor apartment with no steps to enter. He is currently staying with his daughter in [place] due to another daughter in [place] having foot surgery
and in unable to assist the patient with errands and providing transportation to doctor appointments. The patient has a rollator, shower chair, and rails at home. The patient has had VN in [place] and been to a SNF in [place] in the past. Patient could not
recall the names of the agency or facility. The patient is schedule for OR today for hernia repair. CM continues to be available to patient/family and is monitoring medical plan for needs at discharge.
Plan: Discharge plans will depend on the patient's progress.
--- NOTE | 2023-06-02 12:03 | W.PN.GS2 ---
Today's Communication / Plan
-
CLD
Golytely prep
This was discussed with patient, both daughters and son-in-law, everyone is in agreement. We discussed the possibility of MIS approach, we will make the determination Wednesday if this is reasonable, if not, open approach will be pursued.
Assessment / Plan
-
87M with large left incarcerated inguinal hernia containing colon in the setting of chronic constipation
AFVSS, no pain, no nausea today
Last dose eliquis Mon amie
No leukocytosis
Malnutrition (hypoalbuminiemia noted)
CT A/P with large LIH containing sigmoid colon with heavy stool burden
He is clinically improved today allowing for further preop optimization, plan to defer surgery until Wednesday to allow for more complete eliquis washout and bowel prep.
Plan:
CLD
Golytely prep (hold if he develops nausea)
DVT ppx
Ambulate
NPO at [place] tomorrow night ( night)
Subjective Data
-
Date of Service: June 02, 2023
AFVSS, denies pain, denies n/v, passing flatus and liquid stool
Objective Data
-
Intake and Output
06/01/23 06/02/23 06/03/23
06:59 06:59 06:59
Intake Total 580 / 580
Output Total 500 / 500 1200 / 1200 250 / 250
Balance 80 / 80 -1200 / -1200 -250 / -250
Intake:
IV fluids (Total) 480 / 480
IV piggybacks 100 / 100
Output:
Urine, Voided 200 / 200 200 / 200
Straight cath output 300 / 300 1000 / 1000 250 / 250
Vital Signs
Temp Pulse Resp BP Pulse Ox
97.6 F 73 18 135/70 99
06/02/23 07:05 06/02/23 07:54 06/02/23 07:05 06/02/23 07:54 06/02/23 09:12
Lab Results
06/02/23 04:52
06/02/23 04:52
Calcium 8.5 mg/dl (8.4-10.2) 06/02/23 04:52
Total Bilirubin 0.7 mg/dl (0.2-1.3) 06/02/23 04:52
AST 16 U/L (17-59) L 06/02/23 04:52
ALT 13 U/L (0-50) 06/02/23 04:52
Alkaline Phosphatase 69 U/L (38-126) 06/02/23 04:52
Total Protein 5.3 g/dl (6.3-8.2) L 06/02/23 04:52
Albumin 2.9 g/dl (3.5-5.0) L 06/02/23 04:52
Physical Exam
-
Gen: NAD
Abd: soft, nd, nt
: large left inguinal hernia, soft, nt, incarcerated
[2023-06-02] MEDS: NULYTELY SOLUTION 4 LITERS PO (13:59)
[2023-06-02] MEDS: CLARITIN 10 MG PO (14:00)
[2023-06-02] MEDS: TYLENOL 1000 MG PO (14:37)
[2023-06-02 15:00] VITALS: BP 114/65
[2023-06-02 16:37] VITALS: BP 127/66; PULSE 64; O2SAT 100
[2023-06-02] MEDS: SINGULAIR 10 MG PO (17:04)
[2023-06-02] MEDS: LIPITOR 20 MG PO (17:04)
[2023-06-02 23:25] VITALS: BP 144/83
[2023-06-03] MEDS: TYLENOL 1000 MG PO ×3 (00:54→21:30)
--- NOTE | 2023-06-03 04:45 | PTCARENOTE ---
Received patient on Colyte 4 liter bowel prep; patient stated 'I drank 7 cups today', during this nightshift he was only able to drink 480ml before stating he was 'nauseous and could not drink anymore' (2 liter jug can be found in refrigerator with
the equivalent amount of 2 additional large styro-cups remaining); patient successfully used BSC twice with 1 small and 1 large loose brown bowel movement, along with 2 large incontinent loose brown bowel movements.
[2023-06-03 06:00] VITALS: BMI 25.9
[2023-06-03 06:36] LABS: % Basophils 0.3 % (0-2); % Eosinophils 2.1 % (0-6); % Immature Granulocytes 0.3 % (0-0.5); % Lymphocytes 9.4 % (20.5-51.1); % Monocytes 7.7 % (1.7-9.3); % Neutrophils 80.2 % (42.2-75.2); Absolute Eosinophils 0.1 10^3/uL (0-0.7); Absolute Lymphocytes 0.6 10^3/uL (1.2-3.4); Absolute Monocytes 0.5 10^3/uL (0.1-0.6); Absolute Neutrophils 4.9 10^3/uL (1.4-6.5); Hematocrit 26.8 % (39.0-52.0); Mean Corp Hgb Conc. 33.6 g/dL (33.0-37.0); Mean Corpuscular Hgb 30.5 pg (27.0-31.0); Mean Corpuscular Volume 90.8 fL (80.0-94.0); Mean Platelet Volume 9.7 fL (7.4-10.4); Nucleated Red Blood Cells % 0 % (-); Platelet Count 137 10^3/uL (130-400); Red Blood Cell Count 2.95 10^6/uL (4.70-6.10); Red Cell Dist. Width 15.9 % (11.5-14.5); White Blood Cell Count 6.1 10^3/uL (4.8-10.8)
[2023-06-03 07:13] LABS: ALT (SGPT) 13 U/L (0-50); AST (SGOT) 19 U/L (17-59); Albumin 2.9 g/dl (3.5-5.0); Alkaline Phosphatase 71 U/L (38-126); Blood Urea Nitrogen 26 mg/dl (9-20); Calcium 8.3 mg/dl (8.4-10.2); Carbon Dioxide 19 mmol/L (22-30); Chloride 110 mmol/L (98-107); Estimated Creatinine Clearance 56 ml/min; Glucose 62 mg/dl (70-99); Potassium 3.9 mmol/L (3.5-5.1); Sodium 135 mmol/L (135-145); Total Bilirubin 0.6 mg/dl (0.2-1.3); Total Protein 5.2 g/dl (6.3-8.2); eGFR > 60.00
[2023-06-03 07:45] VITALS: BP 139/77
[2023-06-03] MEDS: SYMBICORT 160/4.5 MCG INHALER 2 PUFF INH ×2 (07:50→20:19)
[2023-06-03] MEDS: SPIRIVA RESPIMAT 2.5 MCG 2 PUFF INH (07:50)
[2023-06-03] MEDS: TOPROL XL 12.5 MG PO (07:55)
[2023-06-03] MEDS: LANOXIN 125 MCG PO (07:55)
[2023-06-03] MEDS: PROSCAR 5 MG PO (07:55)
[2023-06-03] MEDS: ENTRESTO 24 MG/26 MG 1 TAB PO (07:55)
[2023-06-03] MEDS: FEOSOL 325 MG PO (07:56)
[2023-06-03] MEDS: MIRALAX 17 GRAMS PO (07:56)
[2023-06-03] MEDS: CLARITIN 10 MG PO (07:56)
[2023-06-03] MEDS: NSS (PRESERVATIVE FREE) 10 ML IV (07:58)
[2023-06-03] MEDS: PROTONIX IV 40 MG IV (07:58)
--- NOTE | 2023-06-03 09:13 | W.PN.SURGUPD ---
Addendum entered and electronically signed by Wale Arevalo MD 06/03/23 09:18:
EKG completed
added type and screen today given hgb 9, although significant blood loss not typically encountered with procedure
Original Note:
Surgical Update
Surgical Update
Patient seen and examined.
Tolerated bowel prep without nausea or vomiting
Had incontinence with moving bowels overnight
No new abdominal pains
Left inguinal hernia unchanged
AFVSS
ABD: Soft, nondistended, upper midline laparotomy scar, no tenderness on palpation. Large left inguinal hernia. Did not attempt to reduce.
Assessment/plan: 87-year-old male with large left inguinal scrotal hernia. Added onto the OR schedule for tomorrow 06/04/2023 for operative correction
Clear liquids, n.p.o. after midnight
Continue to hold Eliquis
--- NOTE | 2023-06-03 11:05 | CM ---
Reviewed the chart notes. Patient for OR tomorrow for left inguinal hernia repair. Patient on clear liquid diet until midnight, the npo. CM continues to be available to patient/family and is monitoring medical plan for needs at discharge.
Plan: Discharge plans will depend on the patient's progress after surgery.
--- NOTE | 2023-06-03 14:33 | W.PN.HOSP.TC ---
Today's Communication/Plan
-
N.p.o. after midnight
Assessment / Plan
Assessment / Plan
Gen-AAOx3, NAD
HEENT-NC, AT, anicteric, clear oral mm
Neck-supple
CV-reg, no M, +S1/S2
Lungs-clear B/L
Abd-soft, NT, ND, large left inguinal hernia
Ext-no edema
Musculoskeletal-no cyanosis, clubbing
Skin-warm and dry
Neuro-grossly non-focal
Psych-calm, cooperative
Non-reducible chronic left inguinal hernia - n.p.o. after midnight for surgical repair on Saturday 06/03.
Chronic constipation -possibly exacerbated by hernia. Continue bowel regimen. Had 2 bowel movements today.
Asymptomatic pyuria - clinically doubt UTI. Hold further antibiotics. Self-catheterization at home, suspect he will always have pyuria. Patient also relates that he went to urgent care a month ago for evaluation of a cough. Apparently given
antibiotics for reported 'UTI' at that point in time although he again had no symptoms.
Chronic heart failure preserved EF -Last echo WAS 50% EF per daughter
Seen at [facility] in [place]
Continue atorvastatin, metoprolol, Entresto
Hold Jardiance as n.p.o.
Hold Lasix as n.p.o.
Atrial fibrillation -unknown type. Eliquis on hold for surgery.
Continue metoprolol, Dig
Hyponatremia -present on admission. Resolved.
Anemia of chronic disease
GI eval as OP Discussed with daughter
Essential HTN -continue metoprolol, Entresto
Hyperlipidemia-atorvastatin
H/O PUD with surgery/GERD-Had 'Nerve Removal'
H/O Renal cancer Right side with cryoablation at [facility] possibly 2022
H/O RCC Left kidney in 2011 had partial Nephrectomy Left side
H/O TAVR
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
MRI Pancreas as OP if desired
Discussed with daughter
Complicated Cholecystectomy in april of 2022
Cognitive impairment
Chronic ambulatory dysfunction uses walker
Hypoalbuminemia
Likely has COPD? -on respiratory, albuterol inhaler
Prostate disease-continue finasteride
Ex Smoker
DNR
Anticipated Discharge: > 48 hours
Subjective/Interval History
-
Date of Service: June 03, 2023
Patient seen and examined. No complaints.
Objective Data
-
Labs:
Laboratory Results
06/03/23
05:14
WBC 6.1
Hgb 9.0 L
Hct 26.8 L
Plt Count 137
Sodium 135
Potassium 3.9
Chloride 110 H
Carbon Dioxide 19 L
BUN 26 H
Creatinine 0.9
Glucose 62 L
Calcium 8.3 L
Total Bilirubin 0.6
AST 19
ALT 13
Alkaline Phosphatase 71
Vital Signs:
Vital Signs
Temp Pulse Resp BP Pulse Ox
97.9 F 81 16 139/77 99
06/03/23 07:45 06/03/23 07:55 06/03/23 07:53 06/03/23 07:55 06/03/23 08:00
I&O
06/02/23 06/03/23 06/04/23
06:59 06:59 06:59
Intake Total 480 / 480
Output Total 1200 / 1200 1150 / 1150 350 / 350
Balance -1200 / -1200 -670 / -670 -350 / -350
Review of Systems
-
History Source: Patient
All other systems: Reviewed and negative
[2023-06-03 15:45] VITALS: BP 141/77
[2023-06-03] MEDS: LIPITOR 20 MG PO (17:31)
[2023-06-03] MEDS: SINGULAIR 10 MG PO (17:31)
[2023-06-03 23:10] VITALS: BP 140/76
[2023-06-04] VITALS (11 sets, daily range): BP systolic 105–155; BP diastolic 57–88; BMI 25.6
[2023-06-04] MEDS: SPIRIVA RESPIMAT 2.5 MCG INH (07:53)
[2023-06-04] MEDS: SYMBICORT 160/4.5 MCG INHALER INH (07:53)
--- NOTE | 2023-06-04 10:05 | W.IMMPOSTOP ---
Surgical Immed Post Op Note
-
Primary Surgeon: Anish
Assisting: Ziyad ROSS
Pre-op Diagnosis: Incarcerated left inguinal hernia
Post-op Diagnosis: Same
Procedure Performed: Open repair incarcerated left inguinal hernia (Yfn)
Anesthesia Type: GETA
Specimen / Cultures: None
Estimated Blood Loss: 10cc
Complications: None immediate
Operative Findings: Large indirect inguino-scrotal hernia with sliding component containing sigmoid colon; MPO distorted, floor blown out --> plicated with shallow bites of vicryl suture; vas sacrificed; 3 x 6 inch bard mesh
--- NOTE | 2023-06-04 10:09 | OR.RPT ---
Operative Report
Operative Report
Primary Surgeon: Anish
Assisting: Ziyad ROSS
Pre-op Diagnosis: Incarcerated left inguinal hernia
Post-op Diagnosis: Same
Procedure Performed: Open repair incarcerated left inguinal hernia (Yfn)
Anesthesia Type: GETA
Specimen / Cultures: None
Estimated Blood Loss: 10cc
Complications: None immediate
Operative Findings: Large indirect inguino-scrotal hernia with sliding component containing sigmoid colon; floor blown out and plicated with shallow bites of vicryl suture; vas sacrificed; 3 x 6 inch bard mesh
Date of Surgery: 06/04/23
Indications: This 87M developed a symptomatic incarcerated left inguinal hernia involving sigmoid colon. He underwent bowel prep preoperatively. Repair was thus indicated and laparoscopic possible open approach was elected.
Description of procedure: The patient was taken to the operating room and the correct side of surgery was verified. The patient was placed supine with arms out. After obtaining adequate anesthesia, the patient�s abdomen was prepped and draped in
standard sterile fashion. The patient was placed in the Trendelenburg position and an attempt to reduce the hernia manually was performed without success. At this point the laparoscopic approach was abandoned. A time-out was completed verifying
correct patient, procedure, site, positioning, and implants and special equipment prior to beginning this procedure. Local anesthesia was used to perform a field block from the ASIS laterally to the umbilicus medially and fanning out inferiorly
toward the inguinal ligament and pubic symphysis. A generous oblique incision was made with a 15 blade about 3cm superior to the inguinal ligament beginning just beyond the midline on the right and extending toward a point 3cm superior to the ASIS
on the left. Camper's and Mark's fascia were divided with electrocautery and the external oblique aponeurosis was exposed and cleared of overlying fat. Judicious hemostasis was achieved with electrocautery. The external oblique was incised with a
15 blade parallel to its fibers and metzenbaum garret were used to elevate and divide the aponeurosis taking care to protect the ilioinguinal nerve. The nerve was identified and protected. Digital blunt dissection was used to separate the cord
structures from the pubic tubercle by passing a finger under the hernia contents and sliding along the tubercle from medial to lateral, and a savita drain was used to encircle the cord and hernia contents. The sac was identified, however the distal
end was trapped in the scrotum and unable to be reduced up out of the defect. The sac was opened and healthy viable colon was exposed. The colon was reduced into the abdomen. Clamps were placed on the sac and it was elevated out of the field. Cord
structures were identified and dissected away from the sac and protected, using blunt sweeps and careful electrocautery. The vas was tightly and densely adherent to the sac and did not mobilize well inferiorly. It was sacrificed using vicryl ties in
2 locations and dividing the tissue in between with metzenbaum garret revealing a single non bloody lumen. The sac was dissected back to its base at the internal ring until preperitoneal fat was visible. A sponge stick was used to hold the colon in
the abdominal cavity. The floor was inspected and was blown out. It was plicated carefully with shallow bites using 3-0 vicryl suture. A 3'x6' bard mesh was trimmed to shape. The apex was secured to the pubic tubercle with 2-0 prolene suture with
maximal overlap down the anterior side of the tubercle. The lateral edge of the mesh was secured to the inguinal ligament with interrupted 2-0 prolene suture. The mesh was split from the superior edge to create two tails creating a crotch at the
inferior edge of the internal ring. The tails were crossed over top of the cord structures and a prolene suture was used to suture the tails together without incorporating any tissue in order to reconstruct the internal ring. The medial edge of the
mesh was secured to the somewhat lax conjoint tendon with interrupted prolene sutures. The external oblique aponeurosis was reapproximated with running 2-0 vicryl suture taking care again not to injure the ilioinguinal nerve. Mark's fasica was
reapproximated in similar fashion. The skin was closed with jez. An aquacel dressing was placed.
The patient tolerated the procedure well and was taken to the postanesthesia care unit in stable condition.
--- NOTE | 2023-06-04 10:51 | PTCARENOTE ---
1030: Patient arrived to 2S. Head to toe assessment completed. Patient lethargic, but arouses to voice and following commands. Aquacel on L lower abdomen clean dry and intact. Patient wearing 2L NC with an SpO2 greater than 92%. Call sapp within
reach and bed in lowest position. Family at bedside.
--- NOTE | 2023-06-04 10:53 | CM ---
Addendum entered by Mila Marie RN 06/04/23 15:52:
IMM signed and placed on chart. PT evaluation pending.
Original Note:
Reviewed the chart notes. The patient went to the OR today for open repair of incarcerated left inguinal hernia. CM continues to be available to patient/family and is monitoring medical plan for needs at discharge.
Plan: Discharge plans will depend on the patient's progress. Patient is temporarily staying with his daughter. Patient normally resides alone in an apartment in [place].
[2023-06-04] MEDS: NSS (PRESERVATIVE FREE) 10 ML IV (13:27)
[2023-06-04] MEDS: MIRALAX 17 GRAMS PO (13:27)
[2023-06-04] MEDS: PROSCAR 5 MG PO ×2 (13:27→13:28)
[2023-06-04] MEDS: TOPROL XL 12.5 MG PO (13:27)
[2023-06-04] MEDS: FEOSOL 325 MG PO (13:28)
[2023-06-04] MEDS: ENTRESTO 24 MG/26 MG 1 TAB PO (13:28)
[2023-06-04] MEDS: PROTONIX IV 40 MG IV (13:28)
[2023-06-04] MEDS: CLARITIN 10 MG PO (13:28)
[2023-06-04] MEDS: LANOXIN 125 MCG PO (13:31)
--- NOTE | 2023-06-04 13:40 | W.PN.HOSP.TC ---
Today's Communication/Plan
-
PT/OT
Resume diet
A.m. cortisol
Assessment / Plan
Assessment / Plan
Gen-AAOx3, NAD
HEENT-NC, AT, anicteric, clear oral mm
Neck-supple
CV-reg, no M, +S1/S2
Lungs-clear B/L
Abd-soft, NT, ND, large left inguinal hernia
Ext-no edema
Musculoskeletal-no cyanosis, clubbing
Skin-warm and dry, left inguinal dressing intact
Neuro-grossly non-focal
Psych-calm, cooperative
Non-reducible chronic left inguinal hernia -stable postop repair of incarcerated left inguinal hernia today. Diet resumed. Resume PT/OT.
Fasting hyperglycemia -glucose 62 yesterday morning. Will check a.m. cortisol.
Chronic constipation -possibly exacerbated by hernia. Continue bowel regimen. Last bowel movement was this morning.
Asymptomatic pyuria - clinically doubt UTI. Hold further antibiotics. Self-catheterization at home, suspect he will always have pyuria. Patient also relates that he went to urgent care a month ago for evaluation of a cough. Apparently given
antibiotics for reported 'UTI' at that point in time although he again had no symptoms.
Chronic heart failure preserved EF -Last echo WAS 50% EF per daughter
Seen at [facility] in [place]
Continue atorvastatin, metoprolol, Entresto
Hold Jardiance as n.p.o.
Hold Lasix as n.p.o.
Atrial fibrillation -unknown type. Eliquis on hold for surgery. I spoke with Dr. Oconnell, he recommends resuming Eliquis on Wednesday evening.
Continue metoprolol, Dig
Hyponatremia -present on admission. Resolved.
Anemia of chronic disease
GI eval as OP Discussed with daughter
Essential HTN -continue metoprolol, Entresto
Hyperlipidemia-atorvastatin
H/O PUD with surgery/GERD-Had 'Nerve Removal'
H/O Renal cancer Right side with cryoablation at [facility] possibly 2022
H/O RCC Left kidney in 2011 had partial Nephrectomy Left side
H/O TAVR
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
MRI Pancreas as OP if desired
Discussed with daughter
Complicated Cholecystectomy in april of 2022
Cognitive impairment
Chronic ambulatory dysfunction uses walker
Hypoalbuminemia
Likely has COPD? -on respiratory, albuterol inhaler
Prostate disease-continue finasteride
Ex Smoker
DNR
Dispo - family interested in SNF. Awaiting PT/OT input. Case management aware. Suspect he will be medically stable for placement tomorrow.
Anticipated Discharge: Within 24 hours
Subjective/Interval History
-
Date of Service: June 04, 2023
Patient seen and examined. Had his procedure this morning. Pain is controlled. No complaints.
Objective Data
-
Vital Signs:
Vital Signs
Temp Pulse Resp BP Pulse Ox
97.4 F 89 18 112/70 96
06/04/23 12:45 06/04/23 12:45 06/04/23 12:45 06/04/23 12:45 06/04/23 12:45
I&O
06/03/23 06/04/23 06/05/23
06:59 06:59 06:59
Intake Total 480 / 480
Output Total 1150 / 1150 1000 / 1000 300 / 300
Balance -670 / -670 -1000 / -1000 -300 / -300
Review of Systems
-
History Source: Patient
All other systems: Reviewed and negative
[2023-06-04 15:15] LABS: Cortisol, Random 11.6 ug/dl
[2023-06-04 17:35] LABS: ACTH Stim Cortisol 0 Min 10.1 ug/dl
[2023-06-04] MEDS: TYLENOL 1000 MG PO ×2 (17:40→23:27)
[2023-06-04] MEDS: LIPITOR 20 MG PO (17:41)
[2023-06-04] MEDS: SINGULAIR 10 MG PO (17:41)
[2023-06-04] MEDS: CORTROSYN 0.25 MG IV (17:48)
[2023-06-04] MEDS: NSS (PRESERVATIVE FREE) 1 ML IV (17:48)
[2023-06-04 19:26] LABS: ACTH Stim Cortisol 30 Min 22.6 ug/dl
[2023-06-04 19:45] LABS: ACTH Stim Cortisol 60 Min 31.2 ug/dl
[2023-06-04] MEDS: SYMBICORT 160/4.5 MCG INHALER 2 PUFF INH (20:40)
[2023-06-05] VITALS (7 sets, daily range): BP systolic 87–134; BP diastolic 56–76; PULSE 66–74; BMI 25.8
[2023-06-05] MEDS: TYLENOL 1000 MG PO ×4 (05:14→23:17)
[2023-06-05 07:11] LABS: % Immature Granulocytes 0.5 % (0-0.5); % Lymphocytes 5.5 % (20.5-51.1); % Monocytes 7.5 % (1.7-9.3); % Neutrophils 86.5 % (42.2-75.2); Absolute Lymphocytes 0.5 10^3/uL (1.2-3.4); Absolute Monocytes 0.6 10^3/uL (0.1-0.6); Absolute Neutrophils 7.3 10^3/uL (1.4-6.5); Hematocrit 24.2 % (39.0-52.0); Hemoglobin 8.2 g/dL (13.0-18.0); Mean Corp Hgb Conc. 33.9 g/dL (33.0-37.0); Mean Corpuscular Hgb 30.8 pg (27.0-31.0); Mean Platelet Volume 9.5 fL (7.4-10.4); Nucleated Red Blood Cells % 0 % (-); Platelet Count 153 10^3/uL (130-400); Red Blood Cell Count 2.66 10^6/uL (4.70-6.10); White Blood Cell Count 8.4 10^3/uL (4.8-10.8)
[2023-06-05 07:40] LABS: Blood Urea Nitrogen 25 mg/dl (9-20); Calcium 8.4 mg/dl (8.4-10.2); Carbon Dioxide 24 mmol/L (22-30); Chloride 106 mmol/L (98-107); Estimated Creatinine Clearance 45 ml/min; Glucose 167 mg/dl (70-99); Potassium 4.3 mmol/L (3.5-5.1); Sodium 136 mmol/L (135-145); eGFR > 60.00
[2023-06-05] MEDS: SPIRIVA RESPIMAT 2.5 MCG 2 PUFF INH (07:54)
[2023-06-05] MEDS: SYMBICORT 160/4.5 MCG INHALER 2 PUFF INH ×2 (07:54→18:32)
[2023-06-05] MEDS: FEOSOL 325 MG PO (08:16)
[2023-06-05] MEDS: MIRALAX 17 GRAMS PO (08:16)
[2023-06-05] MEDS: CLARITIN 10 MG PO (08:16)
[2023-06-05] MEDS: PROTONIX IV 40 MG IV (08:17)
[2023-06-05] MEDS: NSS (PRESERVATIVE FREE) 10 ML IV (08:17)
[2023-06-05] MEDS: ENTRESTO 24 MG/26 MG PO (08:28)
[2023-06-05] MEDS: TOPROL XL PO (08:29)
--- NOTE | 2023-06-05 09:23 | W.PN.GS2 ---
Addendum entered and electronically signed by Wale Arevalo MD 06/05/23 10:16:
Patient seen and examined with nurse practitioner. Agree with documented progress note.
Patient reports mild left inguinal incisional postoperative pain otherwise offers no complaints and he is eating breakfast
AFVSS
ABD: Soft, nondistended, minimal tenderness left lower quadrant. Aquacel dressing in place.
POD #1 status post open repair LIH with mesh
Diet as tolerated
Routine postoperative care
Okay for DC home from surgical standpoint -typically hold therapeutic anticoagulation for 72 hours postop. Aquacel surgical dressing may be removed 2 to 3 days postop then keep incision open to air.
Dispo Per primary service, stable for DC from surgical standpoint
Original Note:
Today's Communication / Plan
-
Regular diet
Dispo planning
Assessment / Plan
-
87M with large left incarcerated inguinal hernia containing colon in the setting of chronic constipation
Now POD #1 open repair
AFVSS
Tolerating diet, minimal post operative pain
No leukocytosis
Malnutrition (hypoalbuminemia noted), now on regular diet and tolerating
Chronic anemia present, mild drop post operatively likely secondary to hemodilution/expected losses
Plan:
Regular diet
Ok to resume Eliquis 72 hours post op if no active bleeding noted
Remove dressing in 2-3 days, then keep incision open to air. Ok to shower.
Subjective Data
-
Date of Service: June 05, 2023
Patient seen and examined at bedside with Dr. Arevalo. Eating almonte and toast. Denies n/v. Reports minimal abdominal discomfort near incision.
Objective Data
-
Intake and Output
06/04/23 06/05/23 06/06/23
06:59 06:59 06:59
Intake Total 960 / 960
Output Total 1000 / 1000 1050 / 1050
Balance -1000 / -1000 -90 / -90
Intake:
Oral fluids 960 / 960
Output:
Straight cath output 999 / 999 105 / 105
Other:
Number of approximated MODERATE 2
amounts of urine
Vital Signs
Temp Pulse Resp BP Pulse Ox
97.6 F 69 15 95/56 96
06/05/23 07:16 06/05/23 08:29 06/05/23 07:57 06/05/23 08:29 06/05/23 07:57
Lab Results
06/05/23 07:00
06/05/23 07:00
Calcium 8.4 mg/dl (8.4-10.2) 06/05/23 07:00
Total Bilirubin 0.6 mg/dl (0.2-1.3) 06/03/23 05:14
AST 19 U/L (17-59) 06/03/23 05:14
ALT 13 U/L (0-50) 06/03/23 05:14
Alkaline Phosphatase 71 U/L (38-126) 06/03/23 05:14
Total Protein 5.2 g/dl (6.3-8.2) L 06/03/23 05:14
Albumin 2.9 g/dl (3.5-5.0) L 06/03/23 05:14
Physical Exam
-
NAD
ABD soft, nd, mild incisional tenderness
left groin incision with intact aquacel dressing
--- NOTE | 2023-06-05 13:36 | W.PN.HOSP.TC ---
Today's Communication/Plan
-
Discharge planning
Assessment / Plan
Assessment / Plan
Gen-AAOx3, NAD
HEENT-NC, AT, anicteric, clear oral mm
Neck-supple
CV-reg, no M, +S1/S2
Lungs-clear B/L
Abd-soft, NT, ND, large left inguinal hernia
Ext-no edema
Musculoskeletal-no cyanosis, clubbing
Skin-warm and dry, left inguinal dressing intact
Neuro-grossly non-focal
Psych-calm, cooperative
Incarcerated chronic left inguinal hernia -stable postop repair of incarcerated left inguinal hernia 06/04.
Fasting hypoglycemia -no signs of adrenal insufficiency on ACTH stimulation testing. Glucose 167 this morning.
Chronic constipation -possibly exacerbated by hernia. Continue bowel regimen. Last bowel movement was this morning.
Asymptomatic pyuria - clinically doubt UTI. Hold further antibiotics. Self-catheterization at home, suspect he will always have pyuria. Patient also relates that he went to urgent care a month ago for evaluation of a cough. Apparently given
antibiotics for reported 'UTI' at that point in time, although he again had no symptoms.
Chronic heart failure preserved EF -Last echo WAS 50% EF per daughter
Seen at [facility] in [place]
Continue atorvastatin, metoprolol, Entresto
Hold Jardiance as n.p.o.
Hold Lasix as n.p.o.
Atrial fibrillation -unknown type. Eliquis on hold for surgery. I spoke with Dr. Oconnell, he recommends resuming Eliquis on Wednesday evening.
Continue metoprolol, Dig
Hyponatremia -present on admission. Resolved.
Anemia of chronic disease
GI eval as OP Discussed with daughter
Essential HTN -continue metoprolol, Entresto
Hyperlipidemia-atorvastatin
H/O PUD with surgery/GERD-Had 'Nerve Removal'
H/O Renal cancer Right side with cryoablation at [facility] possibly 2022
H/O RCC Left kidney in 2012 had partial Nephrectomy Left side
H/O TAVR
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
MRI Pancreas as OP if desired
Discussed with daughter
Complicated Cholecystectomy in april of 2022
Cognitive impairment
Chronic ambulatory dysfunction uses walker
Hypoalbuminemia
Likely has COPD? -on respiratory, albuterol inhaler
Prostate disease-continue finasteride
Ex Smoker
DNR
Dispo -medically stable for discharge to SNF. Case management aware.
Anticipated Discharge: Within 24 hours
Subjective/Interval History
-
Date of Service: June 05, 2023
Patient seen and examined. No complaints.
Objective Data
-
Labs:
Laboratory Results
06/05/23
07:00
WBC 8.4
Hgb 8.2 L
Hct 24.2 L
Plt Count 153
Sodium 136
Potassium 4.3
Chloride 106
Carbon Dioxide 24
BUN 25 H
Creatinine 1.1
Glucose 167 H
Calcium 8.4
Vital Signs:
Vital Signs
Temp Pulse Resp BP Pulse Ox
97.6 F 69 15 95/56 96
06/05/23 07:16 06/05/23 08:29 06/05/23 07:57 06/05/23 08:29 06/05/23 07:57
I&O
06/04/23 06/05/23 06/06/23
06:59 06:59 06:59
Intake Total 960 / 960
Output Total 1000 / 1000 1050 / 1050 200 / 200
Balance -1000 / -1000 -90 / -90 -200 / -200
Review of Systems
-
History Source: Patient
All other systems: Reviewed and negative
[2023-06-05] MEDS: LIPITOR 20 MG PO (17:00)
[2023-06-05] MEDS: SINGULAIR 10 MG PO (17:00)
[2023-06-05 23:57] LABS: Glucose - Point of Care 141 mg/dl (70-99)
[2023-06-06] MEDS: TYLENOL PO (04:06)
[2023-06-06 05:26] VITALS: BMI 25.9
[2023-06-06 07:06] VITALS: BP 129/59
[2023-06-06] MEDS: SYMBICORT 160/4.5 MCG INHALER 2 PUFF INH ×2 (07:35→17:46)
[2023-06-06] MEDS: SPIRIVA RESPIMAT 2.5 MCG 2 PUFF INH (07:35)
[2023-06-06 07:37] LABS: % Basophils 0.3 % (0-2); % Eosinophils 1.9 % (0-6); % Immature Granulocytes 0.3 % (0-0.5); % Lymphocytes 10.5 % (20.5-51.1); % Monocytes 7.3 % (1.7-9.3); % Neutrophils 79.7 % (42.2-75.2); Absolute Eosinophils 0.1 10^3/uL (0-0.7); Absolute Lymphocytes 0.7 10^3/uL (1.2-3.4); Absolute Monocytes 0.5 10^3/uL (0.1-0.6); Absolute Neutrophils 5.2 10^3/uL (1.4-6.5); Hematocrit 23.9 % (39.0-52.0); Hemoglobin 8.2 g/dL (13.0-18.0); Mean Corp Hgb Conc. 34.3 g/dL (33.0-37.0); Mean Corpuscular Hgb 31.2 pg (27.0-31.0); Mean Corpuscular Volume 90.9 fL (80.0-94.0); Mean Platelet Volume 9.8 fL (7.4-10.4); Nucleated Red Blood Cells % 0 % (-); Platelet Count 129 10^3/uL (130-400); Red Blood Cell Count 2.63 10^6/uL (4.70-6.10); Red Cell Dist. Width 16.2 % (11.5-14.5); White Blood Cell Count 6.5 10^3/uL (4.8-10.8)
[2023-06-06 07:48] LABS: Glucose - Point of Care 132 mg/dl (70-99)
[2023-06-06] MEDS: CLARITIN 10 MG PO (08:35)
[2023-06-06] MEDS: PROSCAR 5 MG PO (08:36)
[2023-06-06] MEDS: MIRALAX 17 GRAMS PO (08:36)
[2023-06-06] MEDS: FEOSOL 325 MG PO (08:36)
[2023-06-06] MEDS: PROTONIX IV 40 MG IV (08:37)
[2023-06-06] MEDS: NSS (PRESERVATIVE FREE) 10 ML IV (08:37)
[2023-06-06] MEDS: TYLENOL 1000 MG PO ×3 (08:47→22:18)
[2023-06-06 09:17] VITALS: BP 113/52; BP 114/52; BP 129/62; PULSE 75; PULSE 86
[2023-06-06] MEDS: ENTRESTO 24 MG/26 MG 1 TAB PO (09:18)
[2023-06-06] MEDS: TOPROL XL 12.5 MG PO (09:18)
[2023-06-06 11:54] LABS: Glucose - Point of Care 287 mg/dl (70-99)
--- NOTE | 2023-06-06 12:02 | W.PN.HOSP.TC ---
Today's Communication/Plan
-
CBC in the morning
Hemoglobin A1c
Assessment / Plan
Assessment / Plan
Gen-AAOx3, NAD
HEENT-NC, AT, anicteric, clear oral mm
Neck-supple
CV-reg, no M, +S1/S2
Lungs-clear B/L
Abd-soft, NT, ND, large left inguinal hernia
Ext-no edema
Musculoskeletal-no cyanosis, clubbing
Skin-warm and dry, left inguinal dressing intact
Neuro-grossly non-focal
Psych-calm, cooperative
Incarcerated chronic left inguinal hernia -stable postop repair of incarcerated left inguinal hernia 06/04.
Acute on chronic anemia -hemoglobin 9.4 on admission, 8.2 today. Unclear etiology. Monitor for now. Labs not consistent with iron deficiency, B12/folate normal.
Fasting hypoglycemia -no signs of adrenal insufficiency on ACTH stimulation testing. Glucose 132 this morning. Curiously, glucose 287 before lunch today. Will check hemoglobin A1c.
Chronic constipation -possibly exacerbated by hernia. Continue bowel regimen. Moving bowels daily now.
Asymptomatic pyuria - clinically doubt UTI. Hold further antibiotics. Self-catheterization at home, suspect he will always have pyuria. Patient also relates that he went to urgent care a month ago for evaluation of a cough. Apparently given
antibiotics for reported 'UTI' at that point in time, although he again had no symptoms.
Chronic heart failure preserved EF -Last echo WAS 50% EF per daughter
Seen at [facility] in [place]
Continue atorvastatin, metoprolol, Entresto
Hold Jardiance as n.p.o.
Hold Lasix as n.p.o.
Atrial fibrillation -unknown type. Eliquis on hold for surgery. I spoke with Dr. Oconnell, he recommends resuming Eliquis on Wednesday evening.
Continue metoprolol, Dig
Hyponatremia -present on admission. Resolved.
Essential HTN -continue metoprolol, Entresto
Hyperlipidemia-atorvastatin
H/O PUD with surgery/GERD-Had 'Nerve Removal'
H/O Renal cancer Right side with cryoablation at [facility] possibly 2022
H/O RCC Left kidney in 2011 had partial Nephrectomy Left side
H/O TAVR
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
MRI Pancreas as OP if desired
Discussed with daughter
Complicated Cholecystectomy in april of 2022
Cognitive impairment
Chronic ambulatory dysfunction uses walker
Hypoalbuminemia
Likely has COPD? -on respiratory, albuterol inhaler
Prostate disease-continue finasteride
Ex Smoker
DNR
Dispo -medically stable for discharge to SNF. Case management aware.
Anticipated Discharge: Within 24 hours
Subjective/Interval History
-
Date of Service: June 06, 2023
Patient seen/examined. No complaints.
Objective Data
-
Labs:
Laboratory Results
06/06/23
07:05
WBC 6.5
Hgb 8.2 L
Hct 23.9 L
Plt Count 129 L
Vital Signs:
Vital Signs
Temp Pulse Resp BP Pulse Ox
97.5 F 86 16 113/52 96
06/06/23 07:06 06/06/23 09:18 06/06/23 07:40 06/06/23 09:18 06/06/23 07:40
I&O
06/05/23 06/06/23 06/07/23
06:59 06:59 06:59
Intake Total 960 / 960 540 / 540 120 / 120
Output Total 1050 / 1050 1050 / 1050
Balance -90 / -90 -510 / -510 120 / 120
Review of Systems
-
History Source: Patient
All other systems: Reviewed and negative
--- NOTE | 2023-06-06 14:32 | CM ---
CM met with pt and family at bedside (daughter Gael [phone]) and grandchildren.
Discussed rehab. Daughter explains she is a physical therapist and wants pt to go to [facility] as a backup.
CM reviewed the different levels of rehab (acute, subacute and SNF) and how pt will need to meet criteria to be considered for acute including being able to tolerate 3 hours of therapy a day.
Daughter got on speaker phone who identified [facility] as choice for SNF.
Pt will need to be seen by PT again to follow up on the orthostatics during last eval. Concern pt may not be able to tolerate 3 hours.
CM will send these referrals now via [facility]. Floor CM can follow up with pt/daughter tomorrow.
[2023-06-06] MEDS: ROXICODONE 5 MG PO (15:27)
[2023-06-06 16:33] VITALS: BP 128/71
[2023-06-06] MEDS: LIPITOR 20 MG PO (17:11)
[2023-06-06] MEDS: SINGULAIR 10 MG PO (17:11)
[2023-06-06] MEDS: ELIQUIS 5 MG PO (20:09)
[2023-06-06 23:58] VITALS: BP 128/61
[2023-06-07] VITALS (7 sets, daily range): BP systolic 128–158; BP diastolic 74–89; BMI 26.1
[2023-06-07] MEDS: TYLENOL PO (04:55)
[2023-06-07 05:10] LABS: % Basophils 0.2 % (0-2); % Eosinophils 3.8 % (0-6); % Immature Granulocytes 0.5 % (0-0.5); % Lymphocytes 11.9 % (20.5-51.1); % Monocytes 6.9 % (1.7-9.3); % Neutrophils 76.7 % (42.2-75.2); Absolute Eosinophils 0.2 10^3/uL (0-0.7); Absolute Lymphocytes 0.7 10^3/uL (1.2-3.4); Absolute Monocytes 0.4 10^3/uL (0.1-0.6); Absolute Neutrophils 4.6 10^3/uL (1.4-6.5); Hematocrit 22.4 % (39.0-52.0); Hemoglobin 7.3 g/dL (13.0-18.0); Mean Corp Hgb Conc. 32.6 g/dL (33.0-37.0); Mean Corpuscular Hgb 30.3 pg (27.0-31.0); Mean Corpuscular Volume 92.9 fL (80.0-94.0); Mean Platelet Volume 9.2 fL (7.4-10.4); Nucleated Red Blood Cells % 0 % (-); Platelet Count 120 10^3/uL (130-400); Red Blood Cell Count 2.41 10^6/uL (4.70-6.10); Red Cell Dist. Width 16.3 % (11.5-14.5)
[2023-06-07] MEDS: SYMBICORT 160/4.5 MCG INHALER 2 PUFF INH ×2 (07:54→19:15)
[2023-06-07] MEDS: SPIRIVA RESPIMAT 2.5 MCG 2 PUFF INH (07:54)
[2023-06-07] MEDS: CLARITIN 10 MG PO (08:42)
[2023-06-07] MEDS: ELIQUIS 5 MG PO ×2 (08:42→21:12)
[2023-06-07] MEDS: TOPROL XL 12.5 MG PO (08:42)
[2023-06-07] MEDS: ENTRESTO 24 MG/26 MG 1 TAB PO (08:43)
[2023-06-07] MEDS: FEOSOL 325 MG PO (08:43)
[2023-06-07] MEDS: PROSCAR 5 MG PO (08:43)
[2023-06-07] MEDS: NSS (PRESERVATIVE FREE) 10 ML IV (08:43)
[2023-06-07] MEDS: FLUSH (NSS) 2 FLUSH IV ×2 (08:44→17:36)
[2023-06-07] MEDS: PROTONIX IV 40 MG IV (08:44)
[2023-06-07] MEDS: MIRALAX 17 GRAMS PO (08:44)
[2023-06-07] MEDS: LANOXIN 125 MCG PO (08:48)
[2023-06-07 09:01] LABS: Glycohemoglobin (HgbA1c) 5.6 % (4.0-5.6)
[2023-06-07] MEDS: TYLENOL 1000 MG PO ×3 (09:29→21:12)
--- NOTE | 2023-06-07 09:53 | W.PN.GS2 ---
Today's Communication / Plan
-
Bowel regimen
Assessment / Plan
-
87M with large left incarcerated inguinal hernia containing colon in the setting of chronic constipation now POD #3 open repair
AFVSS
Tolerating diet, minimal post operative pain
Acute on chronic anemia (multifactorial). H/H drifting down from baseline post op. Suspect secondary to expected losses/hemodilution. Undergoing anemic work up.
No evidence of bleeding/hematoma at operative site
Urinary retention noted, being managed with intermittent straight cath
Plan:
Continue Regular diet
Ok to shower
Continue bowel regimen. Miralax daily. Maalox x1 dose this am
Ok to continue Eliquis from surgical standpoint
Awaiting SNF bed, surgical follow up scheduled as OP for staple removal on 06/16
Subjective Data
-
Date of Service: June 07, 2023
Patient seen and examined at bedside with Dr. Munoz. Does note difficulty voiding this admission otherwise no complaints. Denies n/v. No BM as of yet.
Objective Data
-
Intake and Output
06/06/23 06/07/23 06/08/23
06:59 06:59 06:59
Intake Total 540 / 540 1200 / 1200
Output Total 1050 / 1050 975 / 975
Balance -510 / -510 225 / 225
Intake:
Oral fluids 540 / 540 1200 / 1200
Output:
Straight cath output 1050 / 1050 975 / 975
Other:
Number of approximated MODERATE 2
amounts of urine
Vital Signs
Temp Pulse Resp BP Pulse Ox
97.6 F 82 16 153/89 97
06/07/23 07:45 06/07/23 08:48 06/07/23 07:59 06/07/23 08:43 06/07/23 07:59
Lab Results
06/07/23 04:48
06/05/23 07:00
Calcium 8.4 mg/dl (8.4-10.2) 06/05/23 07:00
Total Bilirubin 0.6 mg/dl (0.2-1.3) 06/03/23 05:14
AST 19 U/L (17-59) 06/03/23 05:14
ALT 13 U/L (0-50) 06/03/23 05:14
Alkaline Phosphatase 71 U/L (38-126) 06/03/23 05:14
Total Protein 5.2 g/dl (6.3-8.2) L 06/03/23 05:14
Albumin 2.9 g/dl (3.5-5.0) L 06/03/23 05:14
Physical Exam
-
NAD
ABD soft, nd, NT
left groin incision with intact jez, well approximated. Mild edema, no significant ecchymosis or palpable hematoma.
[2023-06-07] MEDS: MAALOX 30 ML PO (10:12)
--- NOTE | 2023-06-07 11:32 | W.PN.HOSP.TC ---
Today's Communication/Plan
-
Transfusion
Restart Lasix
Assessment / Plan
Assessment / Plan
Patient appears pale
CVS: S1-S2 irregular
Chest: CTA B/L
Abdomen: Soft, NT / Bowel sounds present, Left IH repair site stable
Extremities: No edema,
INFORMATION STRATEGIST: Non focal exam
#Incarcerated chronic left inguinal hernia -stable postop repair of incarcerated left inguinal hernia 06/04.
#Acute on chronic anemia -hemoglobin 9.4 on admission,7.3 today. Unclear etiology.
Possible postoperative blood loss along with anemia of chronic disease and also hemodilution.
Transfuse 1 unit of blood
#Fasting hypoglycemia -no signs of adrenal insufficiency on ACTH stimulation testing. HbA1C 5.6
#Chronic constipation -possibly exacerbated by hernia. Continue bowel regimen. Moving bowels daily now.
#Asymptomatic pyuria - clinically doubt UTI. Hold further antibiotics. Self-catheterization at home, suspect he will always have pyuria. Patient also relates that he went to urgent care a month ago for evaluation of a cough. Apparently given
antibiotics for reported 'UTI' at that point in time, although he again had no symptoms.
#Chronic heart failure preserved EF -Last echo WAS 50% EF per daughter
Seen at [facility] in [place]
Continue atorvastatin, metoprolol, Entresto
Restart Jardiance
Restart Lasix
#Atrial fibrillation -unknown type. Eliquis
Continue Metoprolol, Dig
#Hyponatremia -Present on admission. Resolved.
#Essential HTN -continue metoprolol, Entresto
#Hyperlipidemia-atorvastatin
#H/O PUD with surgery/GERD-Had 'Nerve Removal'. ? Bilroth?
#H/O Renal cancer Right side with cryoablation at [facility] possibly 2022
H/O RCC Left kidney in 2011 had partial Nephrectomy Left side
#H/O TAVR
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
MRI Pancreas as OP if desired
Discussed with daughter
#Complicated Cholecystectomy in april of 2022
#Cognitive impairment
#Chronic ambulatory dysfunction uses walker
#Hypoalbuminemia
#Likely has COPD? -on respiratory, albuterol inhaler
#Prostate disease-continue finasteride
#Ex Smoker
#DNR
D/W RN
Discussed with patient and daughter regarding blood transfusion. Got informed signed consent signed by the patient. Discussed benefits and risks with both.
Discussed with surgery about blood transfusion
Time 54 min
Anticipated Discharge: Within 24 hours
Subjective/Interval History
-
Date of Service: June 07, 2023
Objective Data
-
Labs:
Laboratory Results
06/07/23
04:48
WBC 6.0
Hgb 7.3 L
Hct 22.4 L
Plt Count 120 L
Vital Signs:
Vital Signs
Temp Pulse Resp BP Pulse Ox
97.6 F 82 16 153/89 97
06/07/23 07:45 06/07/23 08:48 06/07/23 07:59 06/07/23 08:43 06/07/23 07:59
I&O
06/06/23 06/07/23 06/08/23
06:59 06:59 06:59
Intake Total 540 / 540 1200 / 1200
Output Total 1050 / 1050 975 / 975
Balance -510 / -510 225 / 225
--- NOTE | 2023-06-07 15:20 | CM ---
Reviewed the chart notes and spoke with the patient and his daughter Gael ([phone]). The patient is currently receiving 1 unit PRBC for Hgb 7.3. [facility] needs more recently PT note. Patient not seen today due to needing PRBC. CM continues to
be available to patient/family and is monitoring medical plan for needs at discharge.
Plan: Discharge plans will depend on the patient's progress. Acute vs SNF.
[2023-06-07] MEDS: LASIX 20 MG IV (17:37)
[2023-06-07] MEDS: SINGULAIR 10 MG PO (17:38)
[2023-06-07] MEDS: LIPITOR 20 MG PO (17:38)
[2023-06-08] MEDS: TYLENOL 1000 MG PO ×3 (05:18→23:20)
[2023-06-08 06:00] VITALS: BMI 25.6
[2023-06-08 07:00] VITALS: BP 141/78
[2023-06-08 07:26] LABS: Hematocrit 27.2 % (39.0-52.0)
--- NOTE | 2023-06-08 07:39 | W.PN.GS2 ---
Today's Communication / Plan
-
Continue Regular diet
Continue bowel regimen. Miralax daily. Maalox x1 dose this am
OK to continue Eliquis from surgical standpoint
Awaiting SNF bed, surgical follow up scheduled as OP for staple removal on 06/16
Please call with any questions or concerns
Assessment / Plan
-
87M with large left incarcerated inguinal hernia containing colon in the setting of chronic constipation now POD #4 open repair
AFVSS
Tolerating diet, minimal post operative pain
Acute on chronic anemia (multifactorial). H/H drifting down from baseline post op. Suspect secondary to expected losses/hemodilution. Undergoing anemic work up. Received 1U on 06/06, appropriate response. No evidence of bleeding/hematoma at operative
site
Urinary retention noted, being managed with intermittent straight cath
Plan:
Continue Regular diet
OK to shower
Continue bowel regimen. Miralax daily. Maalox x1 dose this am
OK to continue Eliquis from surgical standpoint
Awaiting SNF bed, surgical follow up scheduled as OP for staple removal on 06/16
Please call with any questions or concerns
Subjective Data
-
Date of Service: June 08, 2023
No complaints. Pain well-controlled. Tolerating a diet. Passing flatus, no BM. Reports dizziness and lightheadedness days previously, none currently.
Objective Data
-
Intake and Output
06/07/23 06/08/23 06/09/23
06:59 06:59 06:59
Intake Total 1200 / 1200 970 / 970
Output Total 975 / 975 3150 / 3150
Balance 225 / 225 -2180 / -2180
Intake:
Oral fluids 1200 / 1200 720 / 720
Blood Product Amount Infused ( 250 / 250
mL)
Packed Rbc Leukoreduced Unit 250 / 250
[id number]
Output:
Straight cath output 975 / 975 3150 / 3150
Other:
Number of approximated MODERATE 2
amounts of urine
Vital Signs
Temp Pulse Resp BP Pulse Ox
98.4 F 70 18 142/74 97
06/07/23 23:15 06/07/23 23:15 06/07/23 23:15 06/07/23 23:15 06/07/23 23:15
Lab Results
06/08/23 07:17
06/05/23 07:00
Calcium 8.4 mg/dl (8.4-10.2) 06/05/23 07:00
Total Bilirubin 0.6 mg/dl (0.2-1.3) 06/03/23 05:14
AST 19 U/L (17-59) 06/03/23 05:14
ALT 13 U/L (0-50) 06/03/23 05:14
Alkaline Phosphatase 71 U/L (38-126) 06/03/23 05:14
Total Protein 5.2 g/dl (6.3-8.2) L 06/03/23 05:14
Albumin 2.9 g/dl (3.5-5.0) L 06/03/23 05:14
Physical Exam
-
Gen: NAD
Abd: soft, NT/ND, non-peritoneal, LEFT groin incision c/d/i - no erythema, ecchymosis or drainage, palpable seroma and scar, no palpable hernia
[2023-06-08] MEDS: SYMBICORT 160/4.5 MCG INHALER 2 PUFF INH ×2 (07:44→21:07)
[2023-06-08] MEDS: SPIRIVA RESPIMAT 2.5 MCG 2 PUFF INH (07:44)
[2023-06-08] MEDS: ELIQUIS 5 MG PO ×2 (08:27→20:16)
[2023-06-08] MEDS: ENTRESTO 24 MG/26 MG 1 TAB PO (08:27)
[2023-06-08] MEDS: CLARITIN 10 MG PO (08:27)
[2023-06-08] MEDS: JARDIANCE 10 MG PO (08:27)
[2023-06-08] MEDS: PROTONIX 40 MG PO (08:27)
[2023-06-08] MEDS: MIRALAX 17 GRAMS PO (08:28)
[2023-06-08] MEDS: FEOSOL 325 MG PO (08:28)
[2023-06-08] MEDS: PROSCAR 5 MG PO (08:28)
[2023-06-08] MEDS: LASIX 20 MG PO (08:28)
[2023-06-08] MEDS: TOPROL XL 12.5 MG PO (08:29)
[2023-06-08] MEDS: LANOXIN 125 MCG PO (08:32)
--- NOTE | 2023-06-08 10:03 | W.PN.HOSP.TC ---
Today's Communication/Plan
-
Enema
Discharge planning
Assessment / Plan
Assessment / Plan
Feels better
CVS: S1-S2 irregular
Chest: CTA B/L
Abdomen: Soft, NT / Bowel sounds present, Left IH repair site stable
Extremities: No edema,
FOOD BEVERAGE MANAGER: Non focal exam
#Incarcerated chronic left inguinal hernia -stable postop repair of incarcerated left inguinal hernia 06/04.
#Acute on chronic anemia -hemoglobin 9.4 on admission,7.3 to 9.0 today .
Possible postoperative blood loss along with anemia of chronic disease and also hemodilution.
Transfused 1 unit of blood
#Fasting hypoglycemia -no signs of adrenal insufficiency on ACTH stimulation testing. HbA1C 5.6
#Chronic constipation -possibly exacerbated by hernia. Continue bowel regimen. Moving bowels daily now.
#Asymptomatic pyuria - clinically doubt UTI. Hold further antibiotics. Self-catheterization at home, suspect he will always have pyuria. Patient also relates that he went to urgent care a month ago for evaluation of a cough. Apparently given
antibiotics for reported 'UTI' at that point in time, although he again had no symptoms.
#Chronic heart failure preserved EF -Last echo WAS 50% EF per daughter
Seen at [facility] in [place]
Continue atorvastatin, metoprolol, Entresto
Jardiance
Lasix
#Atrial fibrillation -unknown type. Eliquis
Continue Metoprolol, Dig
#Hyponatremia -Present on admission. Resolved.
#Essential HTN -continue metoprolol, Entresto
#Hyperlipidemia-atorvastatin
#H/O PUD with surgery/GERD-Had 'Nerve Removal'. ? Bilroth?
#H/O Renal cancer Right side with cryoablation at [facility] possibly 2022
H/O RCC Left kidney in 2011 had partial Nephrectomy Left side
#H/O TAVR
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
MRI Pancreas as OP if desired
Discussed with daughter
#Complicated Cholecystectomy in april of 2022
#Cognitive impairment
#Chronic ambulatory dysfunction uses walker
#Hypoalbuminemia
#Likely has COPD? -on respiratory, albuterol inhaler
#Prostate disease-continue finasteride
#Ex Smoker
#DNR
D/W RN
D/W Surgeon
Anticipated Discharge: Today
Subjective/Interval History
-
Date of Service: June 08, 2023
Objective Data
-
Labs:
Laboratory Results
06/08/23
07:17
Hgb 9.0 L D
Hct 27.2 L
Vital Signs:
Vital Signs
Temp Pulse Resp BP Pulse Ox
98.0 F 82 16 141/78 96
06/08/23 07:00 06/08/23 08:32 06/08/23 07:56 06/08/23 08:29 06/08/23 07:56
I&O
06/07/23 06/08/23 06/09/23
06:59 06:59 06:59
Intake Total 1200 / 1200 970 / 970
Output Total 975 / 975 3150 / 3150
Balance 225 / 225 -2180 / -2180
[2023-06-08 10:40] VITALS: BP 114/54; BP 70/41; BP 83/47; PULSE 66; PULSE 73
[2023-06-08 10:50] VITALS: BP 110/65
--- NOTE | 2023-06-08 11:02 | CM ---
Addendum entered by Mila Marie RN 06/08/23 16:32:
[facility] is reviewing referral.
Original Note:
Reviewed the chart notes. IMM signed and placed on the chart. Updated PT notes sent to [facility] for review. Family's daughter is an OT and feels patient should qualify for Acute Rehab. If [facility] unable to accept, a referral will be sent to [facility]. [facility] is the other alternative if neither [facility] or [facility] willing to accept. CM continues to be available to patient/family and is monitoring medical plan for needs at discharge.
Plan: Acute vs SNF once bed found. No precert required.
[2023-06-08 15:10] VITALS: BP 119/75
[2023-06-08 15:28] LABS: Blood Urea Nitrogen 25 mg/dl (9-20); Calcium 8.7 mg/dl (8.4-10.2); Carbon Dioxide 27 mmol/L (22-30); Chloride 103 mmol/L (98-107); Estimated Creatinine Clearance 50 ml/min; Glucose 134 mg/dl (70-99); Potassium 4.3 mmol/L (3.5-5.1); Sodium 135 mmol/L (135-145); eGFR > 60.00
[2023-06-08] MEDS: TYLENOL PO (16:00)
[2023-06-08] MEDS: LIPITOR 20 MG PO (17:48)
[2023-06-08] MEDS: SINGULAIR 10 MG PO (17:48)
[2023-06-08 23:03] VITALS: BP 137/81
[2023-06-09] VITALS (7 sets, daily range): BP systolic 79–161; BP diastolic 49–88; PULSE 71–91; O2SAT 98; BMI 25.7
[2023-06-09] MEDS: TYLENOL 1000 MG PO ×4 (04:53→23:10)
[2023-06-09] MEDS: PROTONIX 40 MG PO (08:36)
[2023-06-09] MEDS: PROSCAR 5 MG PO (08:36)
[2023-06-09] MEDS: TOPROL XL 12.5 MG PO (08:36)
[2023-06-09] MEDS: MIRALAX PO (08:36)
[2023-06-09] MEDS: LASIX 20 MG PO (08:36)
[2023-06-09] MEDS: JARDIANCE 10 MG PO (08:37)
[2023-06-09] MEDS: ENTRESTO 24 MG/26 MG 1 TAB PO (08:37)
[2023-06-09] MEDS: CLARITIN 10 MG PO (08:37)
[2023-06-09] MEDS: FEOSOL 325 MG PO (08:37)
[2023-06-09] MEDS: ELIQUIS 5 MG PO ×2 (08:37→21:00)
[2023-06-09] MEDS: LANOXIN 125 MCG PO (08:39)
[2023-06-09] MEDS: MIRALAX 17 GRAMS PO (08:45)
[2023-06-09 08:49] LABS: Hematocrit 25.7 % (39.0-52.0); Hemoglobin 8.6 g/dL (13.0-18.0)
--- NOTE | 2023-06-09 08:52 | W.PN.HOSP.TC ---
Today's Communication/Plan
-
Discharge
Assessment / Plan
Assessment / Plan
Feels better
CVS: S1-S2 irregular
Chest: CTA B/L
Abdomen: Soft, NT / Bowel sounds present, Left IH repair site stable
Extremities: No edema,
CUSHION PADDER: Non focal exam
#Incarcerated chronic left inguinal hernia -stable postop repair of incarcerated left inguinal hernia 06/04.
#Acute on chronic anemia
Possible postoperative blood loss along with anemia of chronic disease and also hemodilution.
Transfused 1 unit of blood
#Fasting hypoglycemia -no signs of adrenal insufficiency on ACTH stimulation testing. HbA1C 5.6
#Chronic constipation -Had good Bms 06/08/23
#Asymptomatic pyuria - clinically doubt UTI. Hold further antibiotics. Self-catheterization at home, suspect he will always have pyuria. Patient also relates that he went to urgent care a month ago for evaluation of a cough. Apparently given
antibiotics for reported 'UTI' at that point in time, although he again had no symptoms.
#Chronic heart failure preserved EF -Last echo WAS 50% EF per daughter
Seen at [facility] in [place]
Continue atorvastatin, metoprolol, Entresto
Jardiance
Lasix
#Atrial fibrillation -unknown type. Eliquis
Continue Metoprolol, Dig
#Hyponatremia -Present on admission. Resolved.
#Essential HTN -continue metoprolol, Entresto
#Hyperlipidemia-atorvastatin
#H/O PUD with surgery/GERD-Had 'Nerve Removal'. ? Bilroth?
#H/O Renal cancer Right side with cryoablation at [facility] possibly 2022
H/O RCC Left kidney in 2011 had partial Nephrectomy Left side
#H/O TAVR
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
MRI Pancreas as OP if desired
Discussed with daughter
#Complicated Cholecystectomy in april of 2022
#Cognitive impairment
#Chronic ambulatory dysfunction uses walker
#Hypoalbuminemia
#Likely has COPD? -on respiratory, albuterol inhaler
#Prostate disease-continue finasteride
#Ex Smoker
#DNR
D/W RN
Anticipated Discharge: Today
Subjective/Interval History
-
Date of Service: June 09, 2023
Objective Data
-
Labs:
Laboratory Results
06/09/23
08:01
Hgb Pending
Hct Pending
Vital Signs:
Vital Signs
Temp Pulse Resp BP Pulse Ox
97.9 F 71 16 161/80 98
06/09/23 07:00 06/09/23 07:00 06/09/23 07:00 06/09/23 07:00 06/09/23 07:00
I&O
06/08/23 06/09/23 06/10/23
06:59 06:59 06:59
Intake Total 970 / 970 840 / 840
Output Total 3150 / 3150 1450 / 1450
Balance -2180 / -2180 -610 / -610
[2023-06-09] MEDS: ProAmatine 5 MG PO (09:11)
[2023-06-09] MEDS: SYMBICORT 160/4.5 MCG INHALER 2 PUFF INH ×2 (09:13→21:31)
[2023-06-09] MEDS: SPIRIVA RESPIMAT 2.5 MCG 2 PUFF INH (09:14)
--- NOTE | 2023-06-09 09:15 | PTCARENOTE ---
Pt hypotensive while working with PT/OT, stated that he felt ' slightly dizzy' per PT. Pt assisted to sitting per PT/OT, PRN midodrine given, Dr Young made aware. Care ongoing at this time.
--- NOTE | 2023-06-09 10:24 | W.PN.UPDATE ---
Update Note
Progress Note Update
Pt seen at bedside, no complaints. On exam there is expected edema to the left groin, no ecchymosis, incision cdi with jez. Pain well controlled. PLan for DC to rhab today, we discussed f/u visit 06/15 for staple removal.
--- NOTE | 2023-06-09 11:08 | CM ---
Addendum entered by Mila Marie RN 06/09/23 15:30:
IMM signed and placed on the chart.
Addendum entered by Mila Marie RN 06/09/23 13:39:
Per Carlyn with [facility], patient's bed will be available tomorrow. RN, attending, and patient's dtr informed.
Original Note:
Reviewed the chart notes. CM spoke with Carlyn admissions at [facility], willing to accept the patient today.
Plan: Discharge to [facility].
Call report to: [phone]
Fax report to: [phone]
Medical and transport forms on chart.
--- NOTE | 2023-06-09 12:36 | W.PN.UPDATE ---
Update Note
Progress Note Update
Repeat orthostatic signs stable
Continue teds and abdominal binder at the rehab with ambulation
I spoke to patient's 2 daughters on a conference call they stated that he did have orthostatic hypotension after his previous surgeries.
Reviewed keeping patient another day versus discharge and they are okay for discharge today.
Follow-up care discussed about stable removal, using MiraLAX, avoiding constipation.
Patient also will have as needed midodrine. For discharge.
Total discharge time 39 minutes
[2023-06-09] MEDS: SINGULAIR 10 MG PO (17:30)
[2023-06-09] MEDS: LIPITOR 20 MG PO (17:30)
[2023-06-10] MEDS: TYLENOL 1000 MG PO (05:00)
[2023-06-10 06:00] VITALS: BMI 25.8
[2023-06-10] MEDS: SPIRIVA RESPIMAT 2.5 MCG 2 PUFF INH (07:42)
[2023-06-10] MEDS: SYMBICORT 160/4.5 MCG INHALER 2 PUFF INH (07:42)
[2023-06-10 08:15] VITALS: BP 125/83
[2023-06-10] MEDS: FEOSOL 325 MG PO (08:51)
[2023-06-10] MEDS: PROSCAR 5 MG PO (08:51)
[2023-06-10] MEDS: CLARITIN 10 MG PO (08:51)
[2023-06-10] MEDS: JARDIANCE 10 MG PO (08:51)
[2023-06-10] MEDS: ELIQUIS 5 MG PO (08:51)
[2023-06-10] MEDS: PROTONIX 40 MG PO (08:51)
[2023-06-10] MEDS: TOPROL XL 12.5 MG PO (08:51)
[2023-06-10] MEDS: MIRALAX 17 GRAMS PO (08:51)
[2023-06-10] MEDS: ENTRESTO 24 MG/26 MG 1 TAB PO (08:51)
[2023-06-10] MEDS: LANOXIN 125 MCG PO (08:58)
[2023-06-10] MEDS: TYLENOL PO ×2 (09:03→15:26)
--- NOTE | 2023-06-10 09:20 | W.PN.HOSP.TC ---
Today's Communication/Plan
-
Discharge to rehab
Assessment / Plan
Assessment / Plan
Feels better
CVS: S1-S2 irregular
Chest: CTA B/L
Abdomen: Soft, NT / Bowel sounds present, Left IH repair site stable
Extremities: No edema,
SEWING MACHINE OPERATOR PAPER BAGS: Non focal exam
# Orthostatic hypotension-happened after the previous surgery also per discussion with daughter.
Abdominal binder, [place] stockings
Repeat labs were okay yesterday. Suspect that PT evaluation was soon after he got his medicines and also got a dose of Lasix yesterday
#Incarcerated chronic left inguinal hernia -stable postop repair of incarcerated left inguinal hernia 06/04.
#Acute on chronic anemia
Possible postoperative blood loss along with anemia of chronic disease and also hemodilution.
Transfused 1 unit of blood
#Fasting hypoglycemia -no signs of adrenal insufficiency on ACTH stimulation testing. HbA1C 5.6
#Chronic constipation -Had good Bms 06/08/23
#Asymptomatic pyuria - clinically doubt UTI. Hold further antibiotics. Self-catheterization at home, suspect he will always have pyuria. Patient also relates that he went to urgent care a month ago for evaluation of a cough. Apparently given
antibiotics for reported 'UTI' at that point in time, although he again had no symptoms.
#Chronic heart failure preserved EF -Last echo WAS 50% EF per daughter
Seen at [facility] in [place]
Continue atorvastatin, metoprolol, Entresto
Jardiance
Lasix
#Atrial fibrillation -unknown type. Eliquis
Continue Metoprolol, Dig
#Hyponatremia -Present on admission. Resolved.
#Essential HTN -continue metoprolol, Entresto
#Hyperlipidemia-atorvastatin
#H/O PUD with surgery/GERD-Had 'Nerve Removal'. ? Bilroth?
#H/O Renal cancer Right side with cryoablation at [facility] possibly 2022
H/O RCC Left kidney in 2011 had partial Nephrectomy Left side
#H/O TAVR
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
MRI Pancreas as OP if desired
Discussed with daughter
#Complicated Cholecystectomy in april of 2022
#Cognitive impairment
#Chronic ambulatory dysfunction uses walker
#Hypoalbuminemia
#Likely has COPD? -on respiratory, albuterol inhaler
#Prostate disease-continue finasteride
#Ex Smoker
#DNR
Anticipated Discharge: Today
Subjective/Interval History
-
Date of Service: June 10, 2023
Objective Data
-
Vital Signs:
Vital Signs
Temp Pulse Resp BP Pulse Ox
97.9 F 79 17 125/83 96
06/10/23 08:15 06/10/23 08:15 06/10/23 08:15 06/10/23 08:15 06/10/23 08:15
I&O
06/09/23 06/10/23 06/11/23
06:59 06:59 06:59
Intake Total 840 / 840 1600 / 1600
Output Total 1450 / 1450 2124 / 2124
Balance -610 / -610 -525 / -525
--- NOTE | 2023-06-10 09:22 | W.DS.TRANS ---
Addendum entered and electronically signed by Catie Young MD 06/10/23 15:18:
Dictation- [id number]
Original Note:
DC Summary - Register Repairer
-
Discharge Instructions:
Sleep Apnea Risk Intermediate
Discharge Diagnosis/Procedures Left inguinal hernia repair, anemia requiring 1
unit of blood transfusion, constipation, chronic
neurogenic bladder with self-catheterization,
chronic heart failure with preserved ejection
fraction, atrial fibrillation, hyponatremia,
hypertension, hyperlipidemia, history of peptic
ulcer disease, history of renal cell carcinoma,
history of TAVR, ambulatory dysfunction,
enlarged prostate, orthostatic hypotension
Diet 2 Gram Sodium,Restrict fluids to 64 oz
Activity No strenuous activity
Bathing Restrictions OK to Shower
Other Services PT,OT
Wound Care Can incision leave open to air; if any drainage,
cover with plain dry gauze and tape.
Specialty Instructions Weigh Daily
Instructions: Groin Hernia Repair (DC)
Stand-Alone Forms:
Changes to Home Medications: Yes
Discharge Medications:
DC Medications w/original date entered in [place]
albuterol sulfate 90 mcg/actuation aerosol inhaler 2 puff inhalation R QID PRN sob/wheezing 05/31/23
apixaban 5 mg tablet (Eliquis) 5 mg PO BID Blood Clot Prevention/Tx 05/31/23
atorvastatin 20 mg tablet 20 mg PO QPM High Cholesterol 05/31/23
budesonide 160 mcg-glycopyr 9 mcg-formot 4.8 mcg/actuation HFA inhaler (Breztri Aerosphere) 2 inh inhalation R BID Lung/Breathing Issues 05/31/23
digoxin 125 mcg (0.125 mg) tablet 125 mcg PO MOTUWETHFR Heart Failure 05/31/23
empagliflozin 10 mg tablet (Jardiance) 10 mg PO DAILY Heart Failure 05/31/23
ferrous sulfate 250 mg (50 mg iron) tablet,extended release 250 mg PO DAILY Supplement 05/31/23
finasteride 5 mg tablet 5 mg PO DAILY prostate issues 05/31/23
metoprolol succinate 25 mg tablet,extended release 24 hr 12.5 mg PO DAILY Heart Failure 05/31/23
montelukast 10 mg tablet 10 mg PO QPM asthma 05/31/23
sacubitril 24 mg-valsartan 26 mg tablet (Entresto) 1 tab PO DAILY Heart Failure 05/31/23
sennosides 8.6 mg tablet (senna) 34.4 mg PO QPM Constipation 05/31/23
acetaminophen 500 mg tablet (Tylenol Extra Strength) 1,000 mg (2 x 500 mg) PO Q6H PRN pain #0 tabs 06/09/23
furosemide 40 mg tablet 20 mg (1/2 x 40 mg) PO DAILY PRN Fluid retention/Swelling #0 tabs 06/09/23
loratadine 10 mg tablet 10 mg PO DAILY Allergies #0 tabs 06/09/23
midodrine 5 mg tablet 5 mg PO TIDPRN PRN SBP<100 #0 tabs 06/09/23
polyethylene glycol 3350 17 gram oral powder packet (HealthyLax) 17 g PO BID Constipation #0 ea 06/09/23
Home Medication Changes
MiraLAX, midodrine, Senokot, new
Pending Results: No
--- NOTE | 2023-06-10 10:07 | CM ---
Reviewed the chart notes. Discharge today to [facility] today.
Call report to: [phone]
Fax report to: [phone]
Medical and transport forms on chart.
[2023-06-10] MEDS: SENOKOT 17.1999999999999993 MG PO (11:53)
--- NOTE | 2023-06-10 12:00 | PTCARENOTE ---
Pt informed RN that his tooth broke and he doesn't know where it is. RN visualzed R lower 3rd from the back tooth is broken tooth with some root remaining. Unable to find broken tooth. Dr Young made aware and informed RN pt to follow up with
dentist outpatient. Pt informed and verbalized understanding. Care remains ongoing.
[2023-06-10 15:06] VITALS: BP 136/64
== END 2023-06-10 16:41 | DRG 351 ==
LOC: 2 SOUTH 23:57
PROVIDERS: Clinical Nurse Specialist Family Health; Emergency Medicine; Hospitalist; Nurse Practitioner Family; Physician Assistant; Surgery; ADMITTING PHYSICIAN Internal Medicine; ATTENDING PHYSICIAN Hospitalist; CONSULT PHYSICIAN Internal Medicine Gastroenterology; CONSULT PHYSICIAN Surgery; EMERGENCY PHYSICIAN Emergency Medicine
PROC: 0YU60JZ Supplement Left Inguinal Region with Synthetic Substitute, Open Approach (ICD-10-PCS; 2023-06-04)
PROC: 30233N1 Transfusion of Nonautologous Red Blood Cells into Peripheral Vein, Percutaneous Approach (ICD-10-PCS; 2023-06-07)
DX: K40.30 Unilateral inguinal hernia, with obstruction, without gangrene, not specified as recurrent (principal); D62 Acute posthemorrhagic anemia; E87.1 Hypo-osmolality and hyponatremia; I50.32 Chronic diastolic (congestive) heart failure; K59.09 Other constipation; I48.0 Paroxysmal atrial fibrillation; I11.0 Hypertensive heart disease with heart failure; I95.1 Orthostatic hypotension; N31.9 Neuromuscular dysfunction of bladder, unspecified; R26.2 Difficulty in walking, not elsewhere classified; N40.1 Benign prostatic hyperplasia with lower urinary tract symptoms; R33.8 Other retention of urine; Z53.31 Laparoscopic surgical procedure converted to open procedure; Z87.11 Personal history of peptic ulcer disease; Z85.528 Personal history of other malignant neoplasm of kidney
CPT/HCPCS: 74177; 80048; 80053; 80162; 81003; 81015; 82533; 82607; 82728; 82746; 82962; 83036; 83540; 83550; 83690; 84484; 85014; 85018; 85025; 86850; 86900; 86901; 86920; 87086; 93005; 94640; 96361; 96365; 96375; 97110; 97116; 97164; 97530; 97535; 99285; C1781; P9016; Q9967